=== PATIENT | female | born 1935 | race African-American/Black ===

== ENCOUNTER 2016-11-04 11:45 | Inpatient (IN) | payer MEDICARE, MEDICAID ==
[~2016-11-04] VITALS: Ht 162.6 cm; Wt 75.3 kg
[2016-11-04] MEDS ORDERED: FLUD0.1T PO (12:11)
[2016-11-04] MEDS ORDERED: METO-304 PO (12:11)
[2016-11-04] MEDS ORDERED: DOCU250C88 PO (12:11)
[2016-11-04] MEDS ORDERED: DIVA125C PO (12:11)
[2016-11-04] MEDS ORDERED: PHEN100C4 PO (12:11)
[2016-11-04] MEDS ORDERED: BISA10SU15 RC (12:11)
[2016-11-04] MEDS ORDERED: ASPI81TA31 PO (12:11)
[2016-11-04] MEDS ORDERED: AMLO10TA2 PO (12:11)
[2016-11-04] MEDS ORDERED: ERGO2000 PO (12:11)
[2016-11-04] MEDS ORDERED: OLAN2.5T3 PO (12:11)
[2016-11-04] MEDS ORDERED: VANCOMYCIN IV 1,000 MG in IV DEXTROSE 5% 250 ML IV ONE (12:15)
[2016-11-04] MEDS ORDERED: PIPERACILLIN SODIUM/TAZOBACTAM 3.375 G in IV DEXTROSE 5% 50 ML IV ONE (12:15)
[2016-11-04] MEDS ORDERED: IV NORMAL SALINE 1000 ML BAG IV ONE (12:15)
[2016-11-04 12:40] LABS: BASOPHILS % (AUTO) 0.4 % (0.0-2.0); EOSINOPHILS # (AUTO) 0.2 K/uL (0.0-0.7); EOSINOPHILS % (AUTO) 3.4 % (0.0-7.0); HEMATOCRIT 41.8 % (37-47); HEMOGLOBIN 13.3 G/DL (12.0-16.0); LYMPHOCYTES # (AUTO) 1.2 K/UL (0.8-4.8); LYMPHOCYTES % (AUTO) 20.8 % (20.5-51.5); MEAN CORPUSCULAR HEMOGLOBIN 28.4 UUG (27.0-31.0); MEAN CORPUSCULAR HGB CONC 32 g/dL (32.0-37.0); MEAN CORPUSCULAR VOLUME 89.2 FL (81.0-99.0); MONOCYTES # (AUTO) 0.7 K/UL (0.1-1.30); MONOCYTES % (AUTO) 12.3 % (0.0-11.0); NEUTROPHILS # (AUTO) 3.6 K/UL (1.8-8.9); NEUTROPHILS % (AUTO) 63.1 % (38.5-71.5); PLATELET COUNT (AUTO) 160 K/UL (150-450); RED BLOOD CELL COUNT(AUTO) 4.68 MIL/UL (4.2-5.4); WHITE BLOOD COUNT (AUTO) 5.7 K/UL (4.0-11.2)
[2016-11-04 12:42] LABS: CARBON DIOXIDE 30 mmol/L (21-32); CHLORIDE 108 mmol/L (98-107); CREATININE 1.3 mg/dL (0.6-1.3); GLUCOSE 123 mg/dL (74-106); POTASSIUM 4.5 mmol/L (3.5-5.1); UREA NITROGEN, BLOOD 20 mg/dL (7-18)
--- NOTE | 2016-11-04 12:44 | NUR ---
Pt became agitated and uncooperative when care provided, per assistant executive housekeeper/it security project manager pt is not staying still, MD aware. Meds ordered by
[2016-11-04] MEDS ORDERED: HALOPERIDOL LACTATE 5 MG/1 ML VIAL IV ONE (12:45)
[2016-11-04] MEDS ORDERED: diphenhydrAMINE 50 MG/1 ML VIAL IV ONE (12:45)
[2016-11-04] MEDS ORDERED: LORAZEPAM 2 MG/1 ML VIAL IV ONE (12:45)
--- NOTE | 2016-11-04 12:45 | NUR ---
Pt refused to change to hospital gown.
--- NOTE | 2016-11-04 12:46 | NUR ---
Dr Faye at the bedside for eval and exam.
[2016-11-04] MEDS ORDERED: VANCOMYCIN IV 200 ML ONE (12:50)
[2016-11-04] MEDS ORDERED: PIPERACILLIN/TAZOBACTAM/D5W 50 ML IV ONE (12:50)
[2016-11-04] MEDS ORDERED: diphenhydrAMINE 50 MG/1 ML VIAL ONE (12:55)
[2016-11-04] MEDS ORDERED: LORAZEPAM 2 MG/1 ML VIAL ONE (12:56)
[2016-11-04] MEDS ORDERED: HALOPERIDOL LACTATE 5 MG/1 ML VIAL ONE (12:56)
[2016-11-04 13:01] LABS: ALANINE AMINOTRANSFERASE 29 U/L (14-59); ALKALINE PHOSPHATASE 176 U/L (50-136); ASPARTATE AMINOTRANSFERASE 29 U/L (15-37); BILIRUBIN,DIRECT 0.1 mg/dL (0.0-0.2); BILIRUBIN,TOTAL 0.4 mg/dL (0.2-1.0); TOTAL PROTEIN, SERUM 7.5 g/dL (6.4-8.2)
--- NOTE | 2016-11-04 13:28 | NUR ---
Assissted sow farm technician to calm the pt for testing but pt becomes agitated again and unable to perform xray. Dr Yunier gomez.
--- NOTE | 2016-11-04 14:03 | NUR ---
Patient is resting comfortably in bed with eyes closed, NAD noted. Awaiting for PMD to call for admit.
--- NOTE | 2016-11-04 16:45 | NUR ---
Pt is not cooperative enough to have xray and ct done. ER aware.
--- NOTE | 2016-11-04 17:00 | NUR ---
Received from ER per samara, this 81 yo female, with chief complaint of right eye swollen, redness and discharge, with the diagnosis of cellulitis. Transferred to bed comfortably. Routine admission care rendered. Awake, confused, oriented to name, responsive to verbal and painful stimuli. Follows command, calm and cooperative, unable to open eyes. Dr. Pichardo informed of admission with orders.
[2016-11-04] MEDS ORDERED: ERGO500014 PO (17:28)
[2016-11-04 18:01] VITALS: BP 156/55
--- NOTE | 2016-11-04 18:34 | NUR ---
Incontinence care done. Repositioned in bed comfortably.
[2016-11-04 20:00] VITALS: BP 189/90
--- NOTE | 2016-11-04 20:15 | NUR ---
PATIENT'S BP 189/90, MD NOTIFIED. PT IS RESTING IN BED, RESPONSIVE, IN NO ACUTE DISTRESS. NO C/O OF HEADACHE, CHEST PAIN. WILL CONTINUE TO MONITOR.
--- NOTE | 2016-11-04 21:15 | NUR ---
SECOND CALL PLACED FOR MD REGARDING PATIENT'S ELEVATED BP 189/90. WAITING FOR CALL BACK.
--- NOTE | 2016-11-04 21:45 | NUR ---
DR. OBRIEN CALLED, VERBAL ORDERS TAKEN FOR CLONIDINE 0.1MG PRN, READ BACK AND CARRIED OUT. PATIENT IS IN NO DISTRESS, RESPONSIVE.
[2016-11-04] MEDS: PIPERACILLIN/TAZOBACTAM/D5W 3.375 G in PREMIXED 1 EACH IV SCH (21:54)
[2016-11-04] MEDS: CLONIDINE HCL 0.1 MG TABLET PO PRN (21:55)
[2016-11-04] MEDS: DIVALPROEX SPRINKLE 125 MG CAP.SPRINK PO SCH (22:03)
[2016-11-04] MEDS ORDERED: CLONIDINE HCL 0.1 MG TABLET ONE (22:03)
[2016-11-04] MEDS: PHENYTOIN SODIUM EXTENDED 100 MG CAPSULE.SA PO SCH (22:03)
[2016-11-05 04:41] VITALS: BP 184/82
[2016-11-05] MEDS: CLONIDINE HCL 0.1 MG TABLET PO PRN (04:45)
[2016-11-05] MEDS ORDERED: CLONIDINE HCL 0.1 MG TABLET ONE (04:54)
[2016-11-05] MEDS: PIPERACILLIN/TAZOBACTAM/D5W 3.375 G in PREMIXED 1 EACH IV SCH ×3 (05:00→21:00)
--- NOTE | 2016-11-05 06:34 | NUR ---
PATIENT SLEPT WELL, IN NO ACUTE DISTRESS. PATIENT IS RESISTANT TO CARE, FREQUENT REINFORCEMENT NEEDED. KEPT CLEAN/DRY, REPOSITIONED FOR COMFORT. SAFETY MEASURES IN PLACE, BED ALARM ON. WILL CONTINUE TO MONITOR.
--- NOTE | 2016-11-05 07:39 | NUR ---
CATAPRES WAS GIVEN BY NOC SHIFT
[2016-11-05] MEDS: DIVALPROEX SPRINKLE 125 MG CAP.SPRINK PO SCH ×2 (08:04→20:37)
[2016-11-05] MEDS: DOCUSATE SODIUM 250 MG CAPSULE PO SCH ×2 (08:05→17:18)
[2016-11-05] MEDS: ASPIRIN 81 MG TAB.CHEW PO SCH (08:05)
[2016-11-05] MEDS: PHENYTOIN SODIUM EXTENDED 100 MG CAPSULE.SA PO SCH ×2 (08:05→20:37)
[2016-11-05] MEDS: OLANZAPINE 2.5 MG TABLET PO SCH ×3 (08:05→17:19)
[2016-11-05] MEDS: AMLODIPINE 10 MG TABLET PO SCH (08:06)
[2016-11-05] MEDS: METOPROLOL SUCCINATE XL 50 MG TAB.SR.24H PO SCH (08:06)
[2016-11-05] MEDS ORDERED: BISACODYL 10 MG SUPP.RECT RC PRN (09:00)
[2016-11-05 11:23] VITALS: BP 134/59
[2016-11-05 15:52] VITALS: BP 126/60
--- NOTE | 2016-11-05 18:45 | NUR ---
PT REFUSED TO BE CATHETERIZED FOR URINE UA, UC.
[2016-11-05 19:00] VITALS: BP 162/78
--- NOTE | 2016-11-05 19:00 | NUR ---
PT IS LAYING IN BED COMFORTABLY. NO S/S OF RESPIRATORY DISTRESS NOTED. NO S/S OF PAIN NOTED. ALL SAFETY NEEDS ARE MET. IV INTACT/PATENT. PT'S SON IS BY THE BEDSIDE
--- NOTE | 2016-11-05 21:09 | NUR ---
CLINICAL PHARMACY NOTE:VANCOMYCIN DOSING Request for vancomycin dosing on 81 y/o female 5'4" 166lbs for cellulitis Temp 98F BUN 20 Scr 1.3 WBC 5.7 Received 1gm vancomycin in ER at 1300 Continue vancomycin 1gm ivpb [id number] estimate trough 14.7. Will continue to monitor
[2016-11-06 04:00] VITALS: BP 167/77
[2016-11-06] MEDS: PIPERACILLIN/TAZOBACTAM/D5W 3.375 G in PREMIXED 1 EACH IV SCH ×3 (05:09→21:16)
--- NOTE | 2016-11-06 06:00 | NUR ---
PT SLEPT WELL, IN NO ACUTE DISTRESS. PT HAS BEEN VERBALLY RESPONSIVE TO CARE AND COOPERATIVE. NO SIGNIFICANT CHANGE OF CONDITION THROUGHOUT THE SHIFT. SAFETY MEASURES IN PLACE, BED ALARM ON. WILL CONTINUE TO MONITOR.
--- NOTE | 2016-11-06 06:30 | NUR ---
URINE SPECIMEN OBTAINED AND SENT TO THE LAB. PATIENT WAS PLACED ON A CLEAN BED TORRES FOR CLEAN CATCH URINE.
[2016-11-06 06:50] LABS: BASOPHILS % (AUTO) 0.6 % (0.0-2.0); EOSINOPHILS # (AUTO) 0.5 K/uL (0.0-0.7); EOSINOPHILS % (AUTO) 9.2 % (0.0-7.0); HEMATOCRIT 38.2 % (37-47); HEMOGLOBIN 12.6 G/DL (12.0-16.0); LYMPHOCYTES # (AUTO) 1.6 K/UL (0.8-4.8); LYMPHOCYTES % (AUTO) 27.7 % (20.5-51.5); MEAN CORPUSCULAR HEMOGLOBIN 29.3 UUG (27.0-31.0); MEAN CORPUSCULAR HGB CONC 33 g/dL (32.0-37.0); MEAN CORPUSCULAR VOLUME 88.7 FL (81.0-99.0); MONOCYTES # (AUTO) 0.9 K/UL (0.1-1.30); MONOCYTES % (AUTO) 15.9 % (0.0-11.0); NEUTROPHILS # (AUTO) 2.8 K/UL (1.8-8.9); NEUTROPHILS % (AUTO) 46.6 % (38.5-71.5); PLATELET COUNT (AUTO) 153 K/UL (150-450); WHITE BLOOD COUNT (AUTO) 5.8 K/UL (4.0-11.2)
[2016-11-06 07:02] LABS: *BILIRUBIN,URIN NEGATIVE (NEGATIVE); *BLOOD, URINE Trace-lysed (NEGATIVE); *CLARITY,URINE CLEAR (CLEAR); *COLOR,URINE LIGHT YELLOW (YELLOW); *KETONES,URINE NEGATIVE (NEGATIVE); *PROTEIN,URINE TRACE (NEGATIVE); LEUKOCYTE ESTERASE ,URINE NEGATIVE (NEGATIVE); NITRITE, URINE NEGATIVE (NEGATIVE); PH,URINE 7.5 (5.0-8.0); UGLUCOSE NEGATIVE (NEGATIVE)
[2016-11-06 07:49] LABS: ALANINE AMINOTRANSFERASE 26 U/L (14-59); ALKALINE PHOSPHATASE 160 U/L (50-136); ASPARTATE AMINOTRANSFERASE 26 U/L (15-37); BILIRUBIN,TOTAL 0.4 mg/dL (0.2-1.0); CARBON DIOXIDE 26 mmol/L (21-32); CHLORIDE 108 mmol/L (98-107); CREATININE 1.4 mg/dL (0.6-1.3); GLUCOSE 119 mg/dL (74-106); PHOSPHOROUS 3.3 mg/dL (2.5-4.9); POTASSIUM 4.2 mmol/L (3.5-5.1); TOTAL PROTEIN, SERUM 7.2 g/dL (6.4-8.2); UREA NITROGEN, BLOOD 14 mg/dL (7-18)
[2016-11-06 08:13] LABS: BACTERIA,URINE FEW /HPF (NONE SEEN); SQUAMOUS EPITHELIAL CELL,UR FEW /HPF (NONE SEEN); WBC,URINE 0-3 /HPF (0-3)
[2016-11-06] MEDS: OLANZAPINE 2.5 MG TABLET PO SCH ×3 (08:47→17:34)
[2016-11-06] MEDS: DIVALPROEX SPRINKLE 125 MG CAP.SPRINK PO SCH ×2 (08:47→21:16)
[2016-11-06] MEDS: DOCUSATE SODIUM 250 MG CAPSULE PO SCH ×2 (08:47→17:33)
[2016-11-06] MEDS: FLUDROCORTISONE ACETATE 0.1 MG TABLET PO SCH (08:47)
[2016-11-06] MEDS: PHENYTOIN SODIUM EXTENDED 100 MG CAPSULE.SA PO SCH ×2 (08:47→21:16)
[2016-11-06] MEDS: ASPIRIN 81 MG TAB.CHEW PO SCH (08:47)
[2016-11-06] MEDS: METOPROLOL SUCCINATE XL 50 MG TAB.SR.24H PO SCH (08:48)
[2016-11-06] MEDS: AMLODIPINE 10 MG TABLET PO SCH (08:49)
[2016-11-06] MEDS: CLONIDINE HCL 0.1 MG TABLET PO PRN (08:51)
--- NOTE | 2016-11-06 10:00 | NUR ---
Patient given clonidine PRN for sBP of 185. Patient given all scheduled morning medications as well. Patient continues to have discharge coming from right eye and is very red.
[2016-11-06 10:21] LABS: EOSINOPHILS % (MANUAL) 9 % (0-8); LYMPHOCYTES % (MANUAL) 28 % (20-40); MONOCYTES % (MANUAL) 6 % (2-10); NEUTROPHILS % (MANUAL) 57 % (42-75)
[2016-11-06 11:48] VITALS: BP 110/57
--- NOTE | 2016-11-06 14:49 | NUR ---
Clinical pharmacy note-Vancomycin dosing per pharmacy Subjective: To continue Vancomycin dosing on this patient for cellulitis Objective: BUN 14 Scr 1.4 WBC 5.8 Temp 99.1 Assessment/Plan: Since renal function is stable, will continue same dose of Vancomycin 1 gram IV every 28hrs (second dose today at 1700)and draw trough by 4th dose(not ordered yet) for expected trough around 14.72. Will monitor renal function to adjust the dose if needed. Will follow daily.
[2016-11-06 15:56] VITALS: BP 118/61
[2016-11-06] MEDS ORDERED: VANCOMYCIN IV 1 G in PREMIXED 0 EACH IV SCH (17:00)
[2016-11-06 20:00] VITALS: BP 146/70
[2016-11-07] MEDS: CLONIDINE HCL 0.1 MG TABLET PO PRN (04:17)
[2016-11-07] MEDS: PIPERACILLIN/TAZOBACTAM/D5W 3.375 G in PREMIXED 1 EACH IV SCH (05:06)
[2016-11-07 05:53] VITALS: BP 180/74
--- NOTE | 2016-11-07 06:00 | NUR ---
PT RESISTANT TO CARE AT 0500. PT SLEPT WELL, IN NO ACUTE DISTRESS. KEPT CLEAN/DRY. SAFETY MEASURES IN PLACE, RAILS PADDED FOR SEIZURE PRECAUTION. BED ALARM ON. WILL CONTINUE TO MONITOR.
--- NOTE | 2016-11-07 07:30 | NUR ---
PT RECEIVED IN BED SLEEPING.UPON APPROACH PT IS CONFUSED.ORIENT THE PT TO ROOM AND SURROUNDINGS.BREAKFAST SERVED.
[2016-11-07] MEDS: DOCUSATE SODIUM 250 MG CAPSULE PO SCH ×2 (08:04→16:10)
[2016-11-07] MEDS: DIVALPROEX SPRINKLE 125 MG CAP.SPRINK PO SCH ×2 (08:04→21:33)
[2016-11-07] MEDS: PHENYTOIN SODIUM EXTENDED 100 MG CAPSULE.SA PO SCH ×2 (08:04→21:33)
[2016-11-07] MEDS: AMLODIPINE 10 MG TABLET PO SCH (08:04)
[2016-11-07] MEDS: OLANZAPINE 2.5 MG TABLET PO SCH ×3 (08:04→16:10)
[2016-11-07] MEDS: ASPIRIN 81 MG TAB.CHEW PO SCH (08:04)
[2016-11-07] MEDS: METOPROLOL SUCCINATE XL 50 MG TAB.SR.24H PO SCH (08:05)
--- NOTE | 2016-11-07 09:15 | NUR ---
Clinical pharmacy note-Vancomycin dosing per pharmacy Subjective: To continue Vancomycin dosing on this patient for cellulitis Objective: BUN 14 (11/06) Scr 1.4 (11/06) WBC 5.8 (11/06) Temp 98.7 Assessment/Plan: Will continue same dose of Vancomycin 1 gram IVPB every 28hrs for today. Second dose today at 2100. Plan to draw trough by 4th dose (not ordered yet). Will monitor renal function to adjust the dose if needed. Will follow daily.
--- NOTE | 2016-11-07 09:20 | NUR ---
PT SEEN BY DR VELARDE INFECTION CONTROL
[2016-11-07 11:00] VITALS: BP 119/55
--- NOTE | 2016-11-07 11:00 | NUR ---
PT WENT FOR CT SCAN BY BED IN STABLE CONDITION,
[2016-11-07] MEDS ORDERED: IOHEXOL 300MG/ML 100 ML INFUS..BTL ONE (11:21)
[2016-11-07] MEDS ORDERED: IV NORMAL SALINE 250 ML IV ONE (11:21)
--- NOTE | 2016-11-07 13:00 | NUR ---
PT RESTING IN HER BED .TOOK HER MEDS.
[2016-11-07] MEDS: CLINDAMYCIN HCL 300 MG CAPSULE PO SCH ×2 (13:22→21:33)
[2016-11-07 15:14] VITALS: BP 127/76
--- NOTE | 2016-11-07 18:00 | NUR ---
PT IS AWAKE IN HER BED ,BOLT MAKER FEEDING HER DINNER ,PT TOLERATED WELL NO NEW NEEDS NOTIFIED
[2016-11-07 20:00] VITALS: BP 122/93
--- NOTE | 2016-11-07 20:20 | NUR ---
Received patient from dayshift nurse in bed sleeping comfortably. No signs of pain or distress. No respiratory distress observed. Call light within reach bed in lowest position with bed alarm on for safety. Seizure precautions implemented. Will continue to monitor
--- NOTE | 2016-11-07 21:45 | NUR ---
IV on patients left hand DC'd due to infiltration. Patient also appears to have a skin allergy to the type of tape used to secure the IV site. Removed tape, cleaned site and dressed with gauze bandage. picture taken and placed in chart. Will endorse to morning nurse not to use that type of tape on the patient in the future. No pain reported by patient when asked. Will continue to monitor closely
[2016-11-08 04:21] VITALS: BP 143/51
[2016-11-08] MEDS: CLINDAMYCIN HCL 300 MG CAPSULE PO SCH ×3 (05:48→21:41)
--- NOTE | 2016-11-08 07:30 | NUR ---
PT RECEIVED IN BED SLEEPING .PT IS CONFUSED,PT HAVE BLISTER ON HER LEFT HAND ,V/S ARE STABLE ,BREAKFAST SERVED.
[2016-11-08] MEDS ORDERED: CLIN300C3 PO (07:55)
--- NOTE | 2016-11-08 08:00 | NUR ---
PT SEEN BY DR MICAH MD NOTIFIED FOR BLISTERS .DRESSING CHANGE PER MD ORDERS.
[2016-11-08] MEDS: OLANZAPINE 2.5 MG TABLET PO SCH ×3 (08:12→16:31)
[2016-11-08] MEDS: METOPROLOL SUCCINATE XL 50 MG TAB.SR.24H PO SCH (08:12)
[2016-11-08] MEDS: PHENYTOIN SODIUM EXTENDED 100 MG CAPSULE.SA PO SCH ×2 (08:12→20:48)
[2016-11-08] MEDS: AMLODIPINE 10 MG TABLET PO SCH (08:12)
[2016-11-08] MEDS: FLUDROCORTISONE ACETATE 0.1 MG TABLET PO SCH (08:12)
[2016-11-08] MEDS: DOCUSATE SODIUM 250 MG CAPSULE PO SCH ×2 (08:12→16:31)
[2016-11-08] MEDS: ASPIRIN 81 MG TAB.CHEW PO SCH (08:12)
[2016-11-08] MEDS: DIVALPROEX SPRINKLE 125 MG CAP.SPRINK PO SCH ×2 (08:12→20:48)
[2016-11-08 11:34] VITALS: BP 134/62
--- NOTE | 2016-11-08 14:04 | NUR ---
PT SEEN BY WOUND CARE NURSE.
--- NOTE | 2016-11-08 14:05 | NUR ---
WOUND CARE CONSULT: PT PRESENTS WITH BLISTERS TO DORSAL SURFACE OF LEFT HAND AND WRIST WITH SLIGHT REDNESS AND EDEMA. RECOMMEND FOLLOWUP BY INFECTIOUS DISEASE MD. RECOMMENDATIONS MADE FOR XEROFORM. DISCUSSED WITH NURSING STAFF. WILL SEE PRN. ROSE IN AGREEMENT WITH PLAN OF CARE. Addendum: 11/08/16 at 1407 by HASMUKH LUNDBERG RN Amended: Links added.
[2016-11-08 15:43] VITALS: BP 133/45
--- NOTE | 2016-11-08 16:54 | NUR ---
Discharge Plan: Spoke to the patient's son, Ethan [ ], who considered [facility] and [facility] for SNF placement. Referrred him to [email or web address] for resources. He spoke to the representatives of both facilities and tour. He chose for the patient to be discharged to [facility] [ ; [address] [place] [address]]. [facility] [ ] [facility] and she confirmed that they will admit the patient once stable. She will be going to Room#109.
[2016-11-08] MEDS ORDERED: ERGOCALCIFEROL 50,000 UNIT CAPSULE PO SCH (17:45)
--- NOTE | 2016-11-08 19:30 | NUR ---
RECEIVED PATIENT LAYING COMFORTABLY IN BED. HOB ELEVATED. PATIENT IS ALERT AND ORIENTED X'S 2. NOTED RIGHT EYE OPENS SMALLER THAN THE LEFT. SECONDARY TO HER DIAGNOSIS. LEFT HAND AND FOREARM WRAPPED IN KIRLEX. SAFETY INITIATED. CALL LIGHT WITHIN REACH. WILL CONTINUE TO MONITOR. CONTACT ISOLATION.
[2016-11-08 20:00] VITALS: BP 143/69
[2016-11-09 04:39] VITALS: BP 137/65
[2016-11-09] MEDS: CLINDAMYCIN HCL 300 MG CAPSULE PO SCH ×2 (05:02→13:03)
--- NOTE | 2016-11-09 06:30 | NUR ---
NO CHANGES T/O SHIFT. WOUND DRESSING CHANGE XEROFORM WRAPPED WITH KIRLEX. ALL MEDS GIVEN ORDERED. ALL NEEDS MET
--- NOTE | 2016-11-09 07:30 | NUR ---
Received patient from weight shifter nurse in bed sleeping comfortably. No signs of pain or distress. No respiratory distress observed. Call light within reach bed in lowest position with bed alarm on for safety. Seizure precautions implemented. Will continue to monitor
[2016-11-09] MEDS: DIVALPROEX SPRINKLE 125 MG CAP.SPRINK PO SCH (08:01)
[2016-11-09] MEDS: ASPIRIN 81 MG TAB.CHEW PO SCH (08:01)
[2016-11-09] MEDS: AMLODIPINE 10 MG TABLET PO SCH (08:01)
[2016-11-09] MEDS: PHENYTOIN SODIUM EXTENDED 100 MG CAPSULE.SA PO SCH (08:01)
[2016-11-09] MEDS: OLANZAPINE 2.5 MG TABLET PO SCH ×2 (08:01→12:46)
[2016-11-09] MEDS: FLUDROCORTISONE ACETATE 0.1 MG TABLET PO SCH (08:01)
[2016-11-09] MEDS: METOPROLOL SUCCINATE XL 50 MG TAB.SR.24H PO SCH (08:01)
[2016-11-09] MEDS: DOCUSATE SODIUM 250 MG CAPSULE PO SCH (08:01)
[2016-11-09 12:02] VITALS: BP 150/64
--- NOTE | 2016-11-09 13:04 | NUR ---
ALF CALLED FOR REPORT WAITING TO GIVE REPORT NO BODY ANSWER
--- NOTE | 2016-11-09 13:04 | NUR ---
PT SEEN BY DR GELLER ,D/C ORDERS RECEIVED ,FAMILY IS AT BED SIDE.
--- NOTE | 2016-11-09 15:08 | NUR ---
D/C ORDERS RECEIVED NOTED AND CARRIED OUT.D/C INSTRUCTIONS AND EDUCATIONS GIVEN TO THE LONGTERM RN.FAMILY NOTIFIED ,PT LEFT THE FACILITY VIA AMBULANCES IN STABLE CONDITION.
[2017-01-17] MEDS ORDERED: PHEN100C4 PO (08:02)
== END 2016-11-09 15:10 | DRG 602 ==
LOC: ER 11:45 → MED 16:47
PROVIDERS: ADMIT Internal Medicine; ATTEND Internal Medicine
DX: L03.213 Periorbital cellulitis (principal); G93.6 Cerebral edema; E27.40 Unspecified adrenocortical insufficiency; F03.90 Unspecified dementia, unspecified severity, without behavioral disturbance, psychotic disturbance, mood disturbance, and anxiety; E11.9 Type 2 diabetes mellitus without complications; G40.909 Epilepsy, unspecified, not intractable, without status epilepticus; Z66 Do not resuscitate; Z86.03 Personal history of neoplasm of uncertain behavior; Z79.899 Other long term (current) drug therapy; D32.0 Benign neoplasm of cerebral meninges; Z79.82 Long term (current) use of aspirin; I95.1 Orthostatic hypotension
CPT/HCPCS: 36415; 70030-TC; 83605; 83735; 84100; 85025; 85730; 87040; 87086; 93005; A4663; C1758; J1200; J1630; J2060; J2543; J3370; J7030; J7040; J7050; Q9967

== ENCOUNTER 2017-01-13 16:30 | Inpatient (IN) | payer MEDICARE, MEDICAID ==
[~2017-01-13] VITALS: Ht 160 cm; Wt 65.8 kg
[~2017-01-13 16:30] MED LIST: AMLO10TA2 PO; ASPI81TA31 PO; BISA10SU15 RC; CLIN300C3 PO; DIVA125C PO; DOCU250C88 PO; ERGO500014 PO; FLUD0.1T PO; METO-304 PO; OLAN2.5T3 PO; PHEN100C4 PO
[2017-01-13] MEDS ORDERED: NA P133E RC (16:55)
[2017-01-13] MEDS ORDERED: MAGN400O6 PO (16:55)
[2017-01-13] MEDS ORDERED: MULT1TAB73 PO (16:56)
[2017-01-13] MEDS ORDERED: ASCO-376 PO (16:56)
[2017-01-13] MEDS ORDERED: VALP250C3 PO (16:56)
[2017-01-13] MEDS ORDERED: PROSTAT (16:56)
[2017-01-13] MEDS ORDERED: ACET-2154 PO (16:56)
[2017-01-13] MEDS ORDERED: CLON0.1T PO (16:56)
[2017-01-13] MEDS ORDERED: CRAN425C6 PO (16:56)
[2017-01-13] MEDS ORDERED: PHEN100C12 PO (16:56)
[2017-01-13] MEDS ORDERED: IV NORMAL SALINE 1000 ML BAG IV ONE (17:15)
[2017-01-13 17:53] LABS: CARBON DIOXIDE 27 mmol/L (21-32); CHLORIDE 112 mmol/L (98-107); CREATININE 1.4 mg/dL (0.6-1.3); GLUCOSE 149 mg/dL (74-106); POTASSIUM 4.5 mmol/L (3.5-5.1); UREA NITROGEN, BLOOD 37 mg/dL (7-18)
[2017-01-13 18:06] LABS: ALANINE AMINOTRANSFERASE 31 U/L (14-59); ALKALINE PHOSPHATASE 170 U/L (50-136); ASPARTATE AMINOTRANSFERASE 43 U/L (15-37); BILIRUBIN,DIRECT < 0.1 mg/dL (0.0-0.2); BILIRUBIN,TOTAL 0.2 mg/dL (0.2-1.0); TOTAL PROTEIN, SERUM 7.7 g/dL (6.4-8.2)
--- NOTE | 2017-01-13 18:14 | NUR ---
SENT IN/OUT URINE SAMPLE TO LAB ORDERED
[2017-01-13 18:22] LABS: BASOPHILS % (AUTO) 0.3 % (0.0-2.0); EOSINOPHILS # (AUTO) 0.1 K/uL (0.0-0.7); EOSINOPHILS % (AUTO) 1.7 % (0.0-7.0); HEMATOCRIT 42.3 % (37-47); HEMOGLOBIN 13.3 G/DL (12.0-16.0); LYMPHOCYTES # (AUTO) 1.3 K/UL (0.8-4.8); LYMPHOCYTES % (AUTO) 21.2 % (20.5-51.5); MEAN CORPUSCULAR HEMOGLOBIN 27.7 UUG (27.0-31.0); MEAN CORPUSCULAR HGB CONC 31 g/dL (32.0-37.0); MEAN CORPUSCULAR VOLUME 88.5 FL (81.0-99.0); MONOCYTES # (AUTO) 0.7 K/UL (0.1-1.30); MONOCYTES % (AUTO) 11.7 % (0.0-11.0); NEUTROPHILS # (AUTO) 3.8 K/UL (1.8-8.9); NEUTROPHILS % (AUTO) 65.1 % (38.5-71.5); PLATELET COUNT (AUTO) 175 K/UL (150-450); RED BLOOD CELL COUNT(AUTO) 4.78 MIL/UL (4.2-5.4); WHITE BLOOD COUNT (AUTO) 5.9 K/UL (4.0-11.2)
[2017-01-13 18:25] LABS: *BLOOD, URINE Trace-intact (NEGATIVE); *CLARITY,URINE SLIGHTLY CLOUDY (CLEAR); *COLOR,URINE YELLOW (YELLOW); *KETONES,URINE TRACE (NEGATIVE); *UROBILINOGEN,URINE 0.2 E.U./dl (NORMAL); LEUKOCYTE ESTERASE ,URINE NEGATIVE (NEGATIVE); NITRITE, URINE NEGATIVE (NEGATIVE); PH,URINE 5.5 (5.0-8.0); UGLUCOSE NEGATIVE (NEGATIVE)
[2017-01-13 18:30] LABS: *BILIRUBIN,URIN 1+ (NEGATIVE); *PROTEIN,URINE 3+ (NEGATIVE)
[2017-01-13] MEDS ORDERED: IV DEXTROSE 5% 500 ML BAG IV ONE (18:30)
[2017-01-13 18:32] LABS: BACTERIA,URINE FEW /HPF (NONE SEEN); RBC,URINE 0-3 /HPF (0-3); SQUAMOUS EPITHELIAL CELL,UR FEW /HPF (NONE SEEN); WBC,URINE 0-3 /HPF (0-3)
[2017-01-13 20:00] VITALS: BP 183/73
--- NOTE | 2017-01-13 20:05 | NUR ---
Brought to Room 212 via bed by Issac Valdez LVN in guarded condition and he gave report to [facility]. floor RN.
[2017-01-13] MEDS ORDERED: IV NS 1000 ML 1,000 ML IV PRN (20:15)
[2017-01-13] MEDS ORDERED: ACETAMINOPHEN 325 MG TABLET PO PRN (20:15)
[2017-01-13] MEDS ORDERED: INSULIN REGULAR, HUMAN 300 UNIT/3 ML VIAL SQ PRN (20:15)
[2017-01-13] MEDS ORDERED: DEXTROSE 50% 50 ML DISP.SYRIN IV PRN (20:15)
--- NOTE | 2017-01-13 20:25 | NUR ---
ADMITTED PATIENT IN TELE UNIT UNDER THE CARE OF JIM HALL LIST DONE. Addendum: 01/13/17 at 2310 by RE WASHINGTON RN ADMITTED PATIENT IN TELE UNIT UNDER THE CARE OF AMMON HALL LIST DONE, CHARTING IN ERROR.
--- NOTE | 2017-01-13 20:27 | NUR ---
ADMITTED PATIENT IN TELE UNIT UNDER THE CARE OF AMMON RUIZ DONE.
[2017-01-13] MEDS: BLOOD SUGAR DIAGNOSTIC 1 EACH STRIP VI SCH ×2 (21:01→21:04)
--- NOTE | 2017-01-13 22:49 | NUR ---
CALLED [facility] TO OBTAIN VACCINE HISTORY, BUT STAFF UNABLE TO TELL BECAUSE HE DOESN'T HAVE ACCESS TO INFORMATION STATED THAT WE HAVE TO CALL IN THE MORNING, ENDORSE IN THE MORNING.
[2017-01-14] VITALS: BP 129/44
[2017-01-14 04:00] VITALS: BP 121/63
--- NOTE | 2017-01-14 05:25 | NUR ---
PATIENT SLEPT MOST OF THE NIGHT, NO SOB NO CHEST PAIN NOTED, RHYTHM SINUS RHYTHM, PATIENT HAS EPISODES OF RESISTIVE WITH CARE, CONTINUE TO ORIENT PATIENT WITH THE CARE, KEPT CLEAN AND DRY, NO COUGHING NO CHOKING NOTED, CONT TO MONITOR.
[2017-01-14] MEDS: BLOOD SUGAR DIAGNOSTIC 1 EACH STRIP VI SCH ×4 (06:06→21:35)
[2017-01-14 06:33] LABS: CARBON DIOXIDE 27 mmol/L (21-32); CHLORIDE 116 mmol/L (98-107); CREATININE 1.3 mg/dL (0.6-1.3); GLUCOSE 128 mg/dL (74-106); POTASSIUM 4.5 mmol/L (3.5-5.1); UREA NITROGEN, BLOOD 34 mg/dL (7-18)
[2017-01-14 07:04] LABS: BASOPHILS % (AUTO) 0.4 % (0.0-2.0); EOSINOPHILS # (AUTO) 0.3 K/uL (0.0-0.7); EOSINOPHILS % (AUTO) 6.8 % (0.0-7.0); HEMATOCRIT 38.3 % (31.2-41.9); HEMOGLOBIN 12.7 g/dL (10.9-14.3); LYMPHOCYTES # (AUTO) 1.6 K/uL (20.0-40.0); MEAN CORPUSCULAR HEMOGLOBIN 29.4 uug (24.7-32.8); MEAN CORPUSCULAR HGB CONC 33 g/dL (32.3-35.6); MEAN CORPUSCULAR VOLUME 88.9 fL (75.5-95.3); MONOCYTES # (AUTO) 0.6 K/uL (2.0-10.0); MONOCYTES % (AUTO) 13.5 % (0.0-11.0); NEUTROPHILS # (AUTO) 1.9 K/uL (1.8-8.9); NEUTROPHILS % (AUTO) 42.3 % (38.5-71.5); PLATELET COUNT (AUTO) 150 K/uL (179-408); RED BLOOD CELL COUNT(AUTO) 4.31 MIL/uL (3.63-4.92); WHITE BLOOD COUNT (AUTO) 4.5 K/uL (3.8-11.8)
--- NOTE | 2017-01-14 07:30 | NUR ---
RECEIVED PATIENT RESTING IN BED AWAKE ALERT NO S/S OF PAIN OR DISCOMFORTS AT THIS TIME.REMAIN ON IVF ORDERED WITH NO S/S OF INFILTERATION ON SITE.MAX ASSIST FOR ALL ADL MADE COMFORTABLE AND WILL CONTINUE TO OBSERVE.
[2017-01-14] MEDS ORDERED: MAGNESIUM HYDROXIDE 30 ML LIQUID UDC PO PRN (08:45)
[2017-01-14] MEDS ORDERED: BISACODYL 10 MG SUPP.RECT RC PRN (08:45)
[2017-01-14] MEDS ORDERED: FLEET ENEMA 133 ML BOTTLE RC PRN (08:45)
[2017-01-14] MEDS ORDERED: ACETAMINOPHEN 325 MG TABLET PO SCH (08:45)
[2017-01-14] MEDS ORDERED: CLONIDINE HCL 0.1 MG TABLET PO PRN (08:45)
[2017-01-14] MEDS: VALPROIC ACID 250 MG CAPSULE PO SCH ×2 (09:30→16:29)
[2017-01-14] MEDS: ASPIRIN 81 MG TAB.CHEW PO SCH (09:32)
[2017-01-14] MEDS: DOCUSATE SODIUM 250 MG CAPSULE PO SCH ×2 (09:32→16:30)
[2017-01-14] MEDS: ASCORBIC ACID 500 MG TABLET PO SCH (09:33)
[2017-01-14] MEDS: MULTIVITAMINS,THERAPEUTIC TABLET PO SCH (09:33)
[2017-01-14] MEDS: AMLODIPINE 10 MG TABLET PO SCH (09:33)
[2017-01-14] MEDS: METOPROLOL SUCCINATE XL 50 MG TAB.SR.24H PO SCH (09:34)
[2017-01-14] MEDS: PHENYTOIN SODIUM EXTENDED 100 MG CAPSULE.SA PO SCH ×3 (09:36→21:22)
[2017-01-14] MEDS: FLUDROCORTISONE ACETATE 0.1 MG TABLET PO SCH (09:36)
[2017-01-14] MEDS: IV 1/2NS 1000 ML 1,000 ML IV PRN (11:14)
[2017-01-14 15:35] VITALS: BP 147/58
[2017-01-14] MEDS: PROTEIN SUPPLEMENT (PROSTAT) 30 ML LIQUID PO SCH (16:10)
--- NOTE | 2017-01-14 18:00 | NUR ---
MORE AWAKE FED SELF DINNER AT THIS TIME WITH IVF IN PROGRESS WITH NO INFILTERATIONS AT THIS TIME AND WILL CONTINUE TO OBSERVE.
[2017-01-14 20:00] VITALS: BP 166/70
[2017-01-14 23:53] VITALS: BP 134/59
[2017-01-15] MEDS: IV 1/2NS 1000 ML 1,000 ML IV PRN ×2 (00:59→12:39)
[2017-01-15 04:00] VITALS: BP 163/63
--- NOTE | 2017-01-15 04:15 | NUR ---
PT REFUSING TO HAVE VITALS TAKEN. EMISSIONS TESTING TECHNICIAN ABLE TO TAKE BP READING, REFUSED TO HAVE PULSE OX AND TEMP TAKEN.
[2017-01-15] MEDS: PHENYTOIN SODIUM EXTENDED 100 MG CAPSULE.SA PO SCH ×4 (05:43→22:00)
--- NOTE | 2017-01-15 06:30 | NUR ---
PT SLEPT INTERMITTENTLY, IN NO ACUTE DISTRESS. ACCUCHECKS ORDERED, NO S/S HYPO/HYPERGLYCEMIA NOTED. IVF RUNNING, NO INFILTRATION NOTED. PT KEPT CLEAN/DRY, REPOSITIONED FOR COMFORT. BED ALARM ON. WILL CONTINUE TO MONITOR. Addendum: 01/15/17 at 0650 by MELBA DEE RN ADD: PT IS ON TELE SINUS RHYTHM
[2017-01-15] MEDS: BLOOD SUGAR DIAGNOSTIC 1 EACH STRIP VI SCH ×4 (06:40→21:00)
[2017-01-15 06:53] LABS: THYROID STIMULATING HORMONE 0.913 mIU/mL (0.358-3.740)
--- NOTE | 2017-01-15 07:30 | NUR ---
Received report from weight shifter nurse. Patient in bed asleep, no evidence of distress noted at this time. Bed in low position, side rails up x2.
[2017-01-15] MEDS: PROTEIN SUPPLEMENT (PROSTAT) 30 ML LIQUID PO SCH ×2 (08:00→17:17)
[2017-01-15 08:14] LABS: BASOPHILS % (AUTO) 0.8 % (0.0-2.0); EOSINOPHILS # (AUTO) 0.4 K/uL (0.0-0.7); EOSINOPHILS % (AUTO) 6.7 % (0.0-7.0); HEMATOCRIT 38.6 % (37-47); HEMOGLOBIN 12.6 G/DL (12.0-16.0); LYMPHOCYTES # (AUTO) 2.3 K/UL (0.8-4.8); LYMPHOCYTES % (AUTO) 37.9 % (20.5-51.5); MEAN CORPUSCULAR HEMOGLOBIN 28.8 UUG (27.0-31.0); MEAN CORPUSCULAR HGB CONC 33 g/dL (32.0-37.0); MONOCYTES # (AUTO) 0.6 K/UL (0.1-1.30); MONOCYTES % (AUTO) 10.5 % (0.0-11.0); NEUTROPHILS # (AUTO) 2.8 K/UL (1.8-8.9); NEUTROPHILS % (AUTO) 44.1 % (38.5-71.5); PLATELET COUNT (AUTO) 180 K/UL (150-450); RED BLOOD CELL COUNT(AUTO) 4.38 MIL/UL (4.2-5.4); WHITE BLOOD COUNT (AUTO) 6.1 K/UL (4.0-11.2)
[2017-01-15 08:26] LABS: ALANINE AMINOTRANSFERASE 26 U/L (14-59); ALKALINE PHOSPHATASE 145 U/L (50-136); ASPARTATE AMINOTRANSFERASE 33 U/L (15-37); BILIRUBIN,TOTAL 0.3 mg/dL (0.2-1.0); CARBON DIOXIDE 24 mmol/L (21-32); CHLORIDE 109 mmol/L (98-107); CREATININE 1.4 mg/dL (0.6-1.3); GLUCOSE 119 mg/dL (74-106); MAGNESIUM 1.6 mg/dL (1.8-2.4); PHOSPHOROUS 3.2 mg/dL (2.5-4.9); POTASSIUM 4.5 mmol/L (3.5-5.1); TOTAL PROTEIN, SERUM 6.7 g/dL (6.4-8.2); UREA NITROGEN, BLOOD 26 mg/dL (7-18)
--- NOTE | 2017-01-15 09:00 | NUR ---
Patient is giving a lot of resistance in taking medications. Paranoid ideations that something else is in the medications. Patient ultimately took medications with chocolate pudding.
[2017-01-15] MEDS: DOCUSATE SODIUM 250 MG CAPSULE PO SCH ×3 (09:02→17:17)
[2017-01-15] MEDS: ASCORBIC ACID 500 MG TABLET PO SCH (09:02)
[2017-01-15] MEDS: ASPIRIN 81 MG TAB.CHEW PO SCH (09:02)
[2017-01-15] MEDS: VALPROIC ACID 250 MG CAPSULE PO SCH ×3 (09:02→17:16)
[2017-01-15] MEDS: MULTIVITAMINS,THERAPEUTIC TABLET PO SCH (09:02)
[2017-01-15] MEDS: FLUDROCORTISONE ACETATE 0.1 MG TABLET PO SCH (09:05)
[2017-01-15] MEDS: METOPROLOL SUCCINATE XL 50 MG TAB.SR.24H PO SCH (09:11)
[2017-01-15] MEDS: AMLODIPINE 10 MG TABLET PO SCH (09:11)
[2017-01-15 11:53] VITALS: BP 142/61
[2017-01-15] MEDS ORDERED: MAGNESIUM OXIDE 400 MG TABLET PO ONE (12:00)
[2017-01-15] MEDS: MAGNESIUM SULFATE/D5W 100 ML IV SCH ×2 (12:32→13:26)
[2017-01-15 15:34] VITALS: BP 127/51
--- NOTE | 2017-01-15 17:25 | NUR ---
Patient has had two episodes of emesis. Administered zofran as ordered by Dr. wagner.
[2017-01-15] MEDS ORDERED: ONDANSETRON 4 MG/2 ML VIAL IV PRN (18:00)
--- NOTE | 2017-01-15 19:03 | NUR ---
Patient appears to be doing better and has requested a tuna sandwich. Patient consumed the entire sandwich and agreed to have an EEG.
[2017-01-15 20:45] VITALS: BP 129/108
--- NOTE | 2017-01-15 21:20 | NUR ---
PT REFUSED TO TAKE SCHEDULED MED AND ACCUCHECK, PT WAS RESISTING AND COMBATIVE. RN CONVINCED PT TO TAKE MEDS, EXPLAINED RISKS/BENEFITS, MULTIPLE ATTEMPTS BUT WAS UNSUCCESSFUL. PT IS ALERT, IN NO ACUTE DISTRESS. WILL CONTINUE TO MONITOR.
[2017-01-16] MEDS: IV 1/2NS 1000 ML 1,000 ML IV PRN ×2 (03:09→20:45)
--- NOTE | 2017-01-16 05:00 | NUR ---
WITHELD PHENYTOIN/DILANTIN SCHEDULED MED DUE TO DRUG LEVEL OUT OF RANGE 25.7 HIGH. Addendum: 01/16/17 at 0748 by MELBA DEE RN TALKED TO PHARMACY, [facility] TO [facility] .
[2017-01-16] MEDS: PHENYTOIN SODIUM EXTENDED 100 MG CAPSULE.SA PO SCH (05:01)
[2017-01-16 05:15] VITALS: BP 118/50
--- NOTE | 2017-01-16 06:30 | NUR ---
PT SLEPT WELL, IN NO ACUTE DISTRESS. IVF RUNNING, NO INFILTRATION NOTED. PT KEPT CLEAN/DRY, REPOSITIONED FOR COMFORT. SAFETY MEASURES IN PLACE, BED ALARM ON. WILL CONTINUE TO MONITOR.
[2017-01-16] MEDS: BLOOD SUGAR DIAGNOSTIC 1 EACH STRIP VI SCH ×4 (06:38→20:46)
[2017-01-16 06:47] LABS: BASOPHILS # (AUTO) 0.1 K/uL (0.0-8.0); BASOPHILS % (AUTO) 0.8 % (0.0-2.0); EOSINOPHILS # (AUTO) 0.4 K/uL (0.0-0.7); EOSINOPHILS % (AUTO) 5.4 % (0.0-7.0); HEMATOCRIT 41.4 % (37-47); HEMOGLOBIN 13.5 G/DL (12.0-16.0); LYMPHOCYTES # (AUTO) 2.7 K/UL (0.8-4.8); LYMPHOCYTES % (AUTO) 35.1 % (20.5-51.5); MEAN CORPUSCULAR HEMOGLOBIN 28.8 UUG (27.0-31.0); MEAN CORPUSCULAR HGB CONC 33 g/dL (32.0-37.0); MEAN CORPUSCULAR VOLUME 88.3 FL (81.0-99.0); MONOCYTES # (AUTO) 0.9 K/UL (0.1-1.30); MONOCYTES % (AUTO) 10.9 % (0.0-11.0); NEUTROPHILS # (AUTO) 3.7 K/UL (1.8-8.9); NEUTROPHILS % (AUTO) 47.8 % (38.5-71.5); PLATELET COUNT (AUTO) 122 K/UL (150-450); RED BLOOD CELL COUNT(AUTO) 4.69 MIL/UL (4.2-5.4); WHITE BLOOD COUNT (AUTO) 7.8 K/UL (4.0-11.2)
[2017-01-16 06:48] LABS: ALANINE AMINOTRANSFERASE 23 U/L (14-59); ALKALINE PHOSPHATASE 151 U/L (50-136); ASPARTATE AMINOTRANSFERASE 23 U/L (15-37); BILIRUBIN,TOTAL 0.2 mg/dL (0.2-1.0); CARBON DIOXIDE 26 mmol/L (21-32); CHLORIDE 111 mmol/L (98-107); CREATININE 1.5 mg/dL (0.6-1.3); GLUCOSE 102 mg/dL (74-106); MAGNESIUM 2.3 mg/dL (1.8-2.4); PHOSPHOROUS 3.9 mg/dL (2.5-4.9); POTASSIUM 5.2 mmol/L (3.5-5.1); TOTAL PROTEIN, SERUM 6.7 g/dL (6.4-8.2); UREA NITROGEN, BLOOD 20 mg/dL (7-18)
--- NOTE | 2017-01-16 07:25 | NUR ---
RECEIVED REPORT FROM WOOLING MACHINE OPERATOR NURSE, PATIENT IN BED ASLEEP, NO EVIDENCE OF DISTRESS NOTED. BED IN LOW POSITION, SIDE RAILS UP X2.
[2017-01-16] MEDS: ASPIRIN 81 MG TAB.CHEW PO SCH (08:22)
[2017-01-16] MEDS: AMLODIPINE 10 MG TABLET PO SCH (08:22)
[2017-01-16] MEDS: METOPROLOL SUCCINATE XL 50 MG TAB.SR.24H PO SCH (08:22)
[2017-01-16] MEDS: DOCUSATE SODIUM 250 MG CAPSULE PO SCH ×2 (08:23→17:57)
[2017-01-16] MEDS: ASCORBIC ACID 500 MG TABLET PO SCH (08:23)
[2017-01-16] MEDS: MULTIVITAMINS,THERAPEUTIC TABLET PO SCH (08:23)
[2017-01-16] MEDS: VALPROIC ACID 250 MG CAPSULE PO SCH (08:23)
[2017-01-16] MEDS: PROTEIN SUPPLEMENT (PROSTAT) 30 ML LIQUID PO SCH ×2 (08:33→17:57)
[2017-01-16] MEDS ORDERED: MIRALAX 17 GM POWD.PACK PO PRN (11:00)
[2017-01-16 11:23] VITALS: BP 148/70
[2017-01-16 15:05] VITALS: BP 138/76
[2017-01-16] MEDS: DIVALPROEX SPRINKLE 125 MG CAP.SPRINK PO SCH (17:57)
--- NOTE | 2017-01-16 19:04 | NUR ---
PATIENT HAS BEEN COOPERATIVE, AND TALKATIVE MOST OF THE DAY IF SHE WASN'T SLEEPING. GOT OUT OF BED WITH PHYSICAL THERAPY, BUT WAS TOO WEEK TO AMBULATE. PATIENT HAS BEEN EATING THE MAJORITY OF HER MEALS TODAY AND DOES NOT REPORT ANY PAIN.
--- NOTE | 2017-01-16 19:30 | NUR ---
received patient laying comfortably in bed. no acute distress noted. patient is asleep at this time. safety initiated. call light within reach. will continue to monitor.
[2017-01-16 20:00] VITALS: BP 141/59
[2017-01-17 05:27] VITALS: BP 153/71
--- NOTE | 2017-01-17 05:59 | NUR ---
PATIENT SLEPT INTERMITTENTLY T/O THE NIGHT. NO ACUTE DISTRESS NOTED. PATIENT REMAINS A&O TO SELF ONLY. IVF INFUSING IN LEFT AC # 20. NO C/O PAIN. VITAL SIGNS STABLE. BMX1. DVT PUMPS IN PLACE. TURN AND REPOSITION Q2H. SAFETY AND COMFORT MEASURES MAINTAINED T/O SHIFT. ALL NEEDS MET. ALL MEDS GIVEN ORDERED.
[2017-01-17] MEDS: BLOOD SUGAR DIAGNOSTIC 1 EACH STRIP VI SCH ×2 (06:52→12:29)
--- NOTE | 2017-01-17 07:10 | NUR ---
Received report from marine radio installer and servicer nurse, patient in bed awake, no evidence of distress noted. Bed in low position, side rails up x2, bed alarm on.
[2017-01-17] MEDS: PROTEIN SUPPLEMENT (PROSTAT) 30 ML LIQUID PO SCH (08:00)
[2017-01-17] MEDS ORDERED: PHEN100C4 PO (08:02)
[2017-01-17] MEDS: METOPROLOL SUCCINATE XL 50 MG TAB.SR.24H PO SCH (08:56)
[2017-01-17] MEDS: ASPIRIN 81 MG TAB.CHEW PO SCH (08:56)
[2017-01-17] MEDS: MULTIVITAMINS,THERAPEUTIC TABLET PO SCH (08:56)
[2017-01-17] MEDS: ASCORBIC ACID 500 MG TABLET PO SCH (08:56)
[2017-01-17] MEDS: DOCUSATE SODIUM 250 MG CAPSULE PO SCH (08:56)
[2017-01-17] MEDS: DIVALPROEX SPRINKLE 125 MG CAP.SPRINK PO SCH (08:56)
[2017-01-17] MEDS: AMLODIPINE 10 MG TABLET PO SCH (08:57)
[2017-01-17] MEDS: FLUDROCORTISONE ACETATE 0.1 MG TABLET PO SCH (08:59)
[2017-01-17 09:33] LABS: BASOPHILS % (AUTO) 0.7 % (0.0-2.0); EOSINOPHILS # (AUTO) 0.4 K/uL (0.0-0.7); EOSINOPHILS % (AUTO) 6.3 % (0.0-7.0); HEMATOCRIT 40.8 % (37-47); HEMOGLOBIN 13.5 G/DL (12.0-16.0); LYMPHOCYTES # (AUTO) 1.5 K/UL (0.8-4.8); MEAN CORPUSCULAR HEMOGLOBIN 29.3 UUG (27.0-31.0); MEAN CORPUSCULAR HGB CONC 33 g/dL (32.0-37.0); MEAN CORPUSCULAR VOLUME 88.3 FL (81.0-99.0); MONOCYTES # (AUTO) 0.6 K/UL (0.1-1.30); MONOCYTES % (AUTO) 9.7 % (0.0-11.0); NEUTROPHILS # (AUTO) 3.3 K/UL (1.8-8.9); NEUTROPHILS % (AUTO) 58.3 % (38.5-71.5); PLATELET COUNT (AUTO) 166 K/UL (150-450); RED BLOOD CELL COUNT(AUTO) 4.61 MIL/UL (4.2-5.4); WHITE BLOOD COUNT (AUTO) 5.8 K/UL (4.0-11.2)
[2017-01-17 10:00] LABS: ALANINE AMINOTRANSFERASE 28 U/L (14-59); ALKALINE PHOSPHATASE 151 U/L (50-136); ASPARTATE AMINOTRANSFERASE 24 U/L (15-37); BILIRUBIN,TOTAL 0.2 mg/dL (0.2-1.0); CARBON DIOXIDE 29 mmol/L (21-32); CHLORIDE 110 mmol/L (98-107); CREATININE 1.3 mg/dL (0.6-1.3); GLUCOSE 163 mg/dL (74-106); PHOSPHOROUS 3.2 mg/dL (2.5-4.9); POTASSIUM 3.9 mmol/L (3.5-5.1); TOTAL PROTEIN, SERUM 7.2 g/dL (6.4-8.2); UREA NITROGEN, BLOOD 17 mg/dL (7-18)
[2017-01-17 11:02] VITALS: BP 150/74
[2017-01-17 15:20] VITALS: BP 136/54
--- NOTE | 2017-01-17 16:00 | NUR ---
CALLED REPORT TO JASPREET AT [facility]. PATIENT WAS PREPARED FOR TRANSFER, IV REMOVED, DISCHARGE EDUCATION PROVIDED, BUT PATIENT HAD POOR CONCENTRATION. ALL BELONGINGS ACCOUNTED FOR AND PREPARED FOR TRANSPORT.
--- NOTE | 2017-01-17 16:40 | NUR ---
PATIENT WAS PICKED UP BY TRANSPORTATION PROVIDER.
== END 2017-01-17 12:25 | DRG 91 ==
LOC: ER 16:31 → TELE 19:49 → MED 01-15 14:52
PROVIDERS: ADMIT Internal Medicine Nephrology; ATTEND Internal Medicine
DX: G92 Toxic encephalopathy (principal); N17.0 Acute kidney failure with tubular necrosis; E87.0 Hyperosmolality and hypernatremia; Y92.099 Unspecified place in other non-institutional residence as the place of occurrence of the external cause; T50.905A Adverse effect of unspecified drugs, medicaments and biological substances, initial encounter; E86.0 Dehydration; G93.89 Other specified disorders of brain; G40.909 Epilepsy, unspecified, not intractable, without status epilepticus; F39 Unspecified mood [affective] disorder; Z79.899 Other long term (current) drug therapy; E11.9 Type 2 diabetes mellitus without complications; Z79.82 Long term (current) use of aspirin; F03.90 Unspecified dementia, unspecified severity, without behavioral disturbance, psychotic disturbance, mood disturbance, and anxiety; I10 Essential (primary) hypertension; R26.9 Unspecified abnormalities of gait and mobility
CPT/HCPCS: 36415; 70030-TC; 70450; 71010; 83605; 83735; 84100; 84300; 84443; 85025; 85730; 87040; 87086; 87400; 93005; 95819; 97110; 97530; A4663; C1758; J1815; J2405; J3475; J3490; J7030; J7040; J7060

== ENCOUNTER 2018-05-01 14:48 | Inpatient (IN) | payer MEDICARE, MEDICAID ==
[~2018-05-01] VITALS: Ht 157.5 cm; Wt 78.2 kg
[~2018-05-01 14:48] MED LIST changes: +ACET-2154 PO; -AMLO10TA2 PO; +AMLO10TA7 PO; +ASCO-376 PO; -CLIN300C3 PO; +CLON0.1T PO; +CRAN425C6 PO; -DIVA125C PO; -ERGO500014 PO; +MAGN400O6 PO; -METO-304 PO; +METO-357 PO; +MULT1TAB73 PO; +NA P133E RC; +PHEN100C12 PO; +PROSTAT
[2018-05-01] MEDS ORDERED: ACETAMINOPHEN 650 MG SUPP.RECT RC ONE ×2 (15:00→15:14)
[2018-05-01] MEDS ORDERED: IV NORMAL SALINE 1000 ML BAG IV ONE ×2 (15:00→16:00)
--- NOTE | 2018-05-01 15:00 | NUR ---
PT A/OX1, BIB PRIVATE AMBULANCE FROM [facility]. PER BAGGAGE AGENT', PT HAS BEEN FEBRILE AND INCREASINGLY LETHARGIC IN THE LAST FEW DAYS. BAGGAGE AGENT ALSO REPORT THAT PT HAS VOMITED APPROXIMATELY 5 TIMES SINCE THIS AM. PT IS UNABLE TO PROVIDE INFORMATION AND IS A POOR HISTORIAN. VS WNL, PT IS FEBRILE 103.1. ER AWARE - CODE SEPSIS ACTIVATED.
[2018-05-01 15:17] LABS: BASOPHILS % (AUTO) 0.3 % (0.0-2.0); HEMATOCRIT 36.2 % (31.2-41.9); HEMOGLOBIN 11.9 g/dL (10.9-14.3); LYMPHOCYTES # (AUTO) 0.2 K/uL (20.0-40.0); LYMPHOCYTES % (AUTO) 1.3 % (20.5-51.5); MEAN CORPUSCULAR HEMOGLOBIN 28.1 uug (24.7-32.8); MEAN CORPUSCULAR HGB CONC 33 g/dL (32.3-35.6); MEAN CORPUSCULAR VOLUME 85.3 fL (75.5-95.3); MONOCYTES # (AUTO) 0.3 K/uL (2.0-10.0); MONOCYTES % (AUTO) 1.6 % (0.0-11.0); NEUTROPHILS # (AUTO) 17.1 K/uL (1.8-8.9); NEUTROPHILS % (AUTO) 96.8 % (38.5-71.5); PLATELET COUNT (AUTO) 166 K/uL (179-408); RED BLOOD CELL COUNT(AUTO) 4.24 MIL/uL (3.63-4.92); WHITE BLOOD COUNT (AUTO) 17.7 K/uL (3.8-11.8)
[2018-05-01 15:22] LABS: CARBON DIOXIDE 23 mmol/L (21-32); CHLORIDE 106 mmol/L (98-107); CREATININE 2.8 mg/dL (0.6-1.3); GLUCOSE 196 mg/dL (74-106); POTASSIUM 3.8 mmol/L (3.5-5.1); UREA NITROGEN, BLOOD 37 mg/dL (7-18)
[2018-05-01 15:27] LABS: ALANINE AMINOTRANSFERASE 35 U/L (14-59); ALKALINE PHOSPHATASE 207 U/L (50-136); ASPARTATE AMINOTRANSFERASE 20 U/L (15-37); BILIRUBIN,DIRECT 0.6 mg/dL (0.0-0.2); BILIRUBIN,TOTAL 0.9 mg/dL (0.2-1.0); LIPASE 72 U/L (73-393); TOTAL PROTEIN, SERUM 7.8 g/dL (6.4-8.2)
--- NOTE | 2018-05-01 15:40 | NUR ---
ER SPOKE W/ DR. GELLER RE PT'S ADMISSION.
[2018-05-01] MEDS ORDERED: VANCOMYCIN IV 1,000 MG in IV DEXTROSE 5% 250 ML IV ONE (15:45)
[2018-05-01] MEDS ORDERED: PIPERACILLIN SODIUM/TAZOBACTAM 3.375 G in IV DEXTROSE 5% 50 ML IV ONE (15:45)
[2018-05-01 15:50] LABS: *BILIRUBIN,URIN NEGATIVE (NEGATIVE); *BLOOD, URINE 2+ (NEGATIVE); *KETONES,URINE NEGATIVE (NEGATIVE); *UROBILINOGEN,URINE 0.2 E.U./dl (NORMAL); LEUKOCYTE ESTERASE ,URINE 3+ (NEGATIVE); NITRITE, URINE NEGATIVE (NEGATIVE); PH,URINE 5.5 (5.0-8.0); UGLUCOSE NEGATIVE (NEGATIVE)
[2018-05-01] MEDS ORDERED: PIPERACILLIN/TAZOBACTAM/D5W 50 ML IV ONE (15:50)
[2018-05-01] MEDS ORDERED: VANCOMYCIN IV 200 ML ONE (15:50)
[2018-05-01 16:03] LABS: *CLARITY,URINE CLOUDY (CLEAR); *COLOR,URINE YELLOW (YELLOW)
[2018-05-01 16:05] LABS: BACTERIA,URINE MANY /HPF (NONE SEEN); RBC,URINE 20-50 /HPF (0-3); WBC,URINE TNTC /HPF (0-3)
[2018-05-01 16:06] LABS: SQUAMOUS EPITHELIAL CELL,UR FEW /HPF (NONE SEEN)
[2018-05-01] MEDS ORDERED: AMLO10TA7 PO (16:12)
[2018-05-01] MEDS ORDERED: NITR0.4T48 SL (16:12)
[2018-05-01] MEDS ORDERED: MORPHINE 100MG/5ML SQ (16:12)
[2018-05-01] MEDS ORDERED: FURO-151 PO (16:12)
[2018-05-01] MEDS ORDERED: ATROPINE 1% SL (16:12)
[2018-05-01] MEDS ORDERED: LOSA50TA39 PO (16:12)
[2018-05-01] MEDS ORDERED: PROC25SU29 RC (16:12)
[2018-05-01] MEDS ORDERED: POTA10CA43 PO (16:12)
[2018-05-01] MEDS ORDERED: HYDR-3326 PO (16:12)
[2018-05-01] MEDS ORDERED: NIFE30TA91 PO (16:12)
[2018-05-01] MEDS ORDERED: BISA10SU61 RC (16:12)
[2018-05-01] MEDS ORDERED: LORA0.5T SL (16:12)
[2018-05-01] MEDS ORDERED: TYLENOL PR (16:12)
[2018-05-01] MEDS ORDERED: CIPROFLOXIN EACHEYE (16:12)
[2018-05-01] MEDS ORDERED: FAMO40TA7 PO (16:12)
--- NOTE | 2018-05-01 16:22 | NUR ---
ADMITTING REPORT GIVEN TO ILYA ISIDRO.
--- NOTE | 2018-05-01 16:43 | NUR ---
PER NURSING SECURITIES AND REAL ESTATE DIRECTORAFUA, PT WILL BE ADMITTED TO CCU4 UNDER BRITNI STATUS.
--- NOTE | 2018-05-01 16:52 | NUR ---
ADMITTING REPORT GIVEN TO ILYA SMITH.
[2018-05-01 17:00] VITALS: BP 132/69
--- NOTE | 2018-05-01 17:00 | NUR ---
ADMIT AN 82 YO FEMALE FROM ER VIA GURSHAN. BRITNI STATUS. AWAKE, BUT VERY CONFUSED. FOLLOWS COMMANDS BUT VERY FORGEFUL. ORIENTED TO HER NAME ONLY. HR IS ST IN THE 120'S. TEMP IS 102.7 RECTALLY. PT PLACED ON A COOLING BLANKET. IVF OF NS 2L IN PROGRESS FOR BOLUS OF BOTH RIGHT AND LEFT AC IV ACCESS.
--- NOTE | 2018-05-01 17:02 | NUR ---
Pt. admitted to CCU4, under care of Dr. GELLER. Belongs List completed
[2018-05-01 18:00] VITALS: BP 124/59
--- NOTE | 2018-05-01 18:05 | NUR ---
NOTIFIED DR GELLER FOR ADMITTING ORDERS.
[2018-05-01] MEDS ORDERED: DOSING BY PHARMACY-MD TO SPECIFY MED/ROUTE XX PRN (18:30)
[2018-05-01] MEDS ORDERED: ACETAMINOPHEN 650 MG SUPP.RECT RC PRN (18:30)
--- NOTE | 2018-05-01 19:00 | NUR ---
2L OF IV NS BOLUSES IS DONE. 2 MORE LITERS OF BOLUSES FROM THE ER TO FOLLOW PER ER ORDERS.
[2018-05-01] MEDS ORDERED: ACETAMINOPHEN 325 MG TABLET PO PRN (19:15)
[2018-05-01] MEDS ORDERED: NITROGLYCERIN 0.4 MG/TAB BOTTLE SL SCH (19:15)
[2018-05-01] MEDS ORDERED: PROCHLORPERAZINE MALEATE 25 MG SUPP.RECT RC PRN (19:15)
[2018-05-01] MEDS ORDERED: ATROPINE SULFATE 1% OPHT DROP 2 ML SL PRN ×2 (19:15→20:15)
[2018-05-01] MEDS ORDERED: MORPHINE SULFATE 20 MG/1 ML ORAL LIQ. PO PRN (19:15)
[2018-05-01] MEDS ORDERED: MAGNESIUM HYDROXIDE 30 ML LIQUID UDC PO PRN (19:15)
[2018-05-01] MEDS ORDERED: BISACODYL 10 MG SUPP.RECT RC PRN (19:15)
[2018-05-01] MEDS ORDERED: CLONIDINE HCL 0.1 MG TABLET PO PRN (19:15)
--- NOTE | 2018-05-01 19:30 | NUR ---
Con't infusing NSS IV bolus from ER.
[2018-05-01] MEDS ORDERED: NITROGLYCERIN 0.4 MG/TAB BOTTLE SL PRN (19:45)
[2018-05-01 20:00] VITALS: BP 175/68
--- NOTE | 2018-05-01 20:00 | NUR ---
Patient awake aaox1 with confusion, no s/s of pain or acute distress on assessment. Temp WNL at this time, safety measures in place. Will continue to monitor patient
[2018-05-01] MEDS: PHENYTOIN SODIUM EXTENDED 100 MG CAPSULE.SA PO SCH (20:18)
[2018-05-01] MEDS: HYDROCODONE/APAP 5-325MG TABLET PO PRN (20:18)
[2018-05-01] MEDS: LORAZEPAM 0.5 MG TABLET SL PRN (20:18)
[2018-05-01] MEDS: NIFEdipine XL 30 MG TABSR PO SCH (20:19)
[2018-05-01] MEDS: CIPROFLOXACIN 0.3% OPHT DROP 2.5 ML BOTTLE EACHEYE SCH (20:50)
[2018-05-01 21:00] VITALS: BP 128/67
[2018-05-01] MEDS ORDERED: MORPHINE SULFATE 20 MG/1 ML ORAL LIQ. SL PRN (21:00)
[2018-05-01] MEDS: IV D5/ 0.9% NACL 1,000 ML IV SCH (21:53)
--- NOTE | 2018-05-01 22:00 | NUR ---
4 L IV BOLUS ordered in ER infused.
[2018-05-01] MEDS: PIPERACILLIN/TAZOBACTAM/D5W 3.375 G in PREMIXED 1 EACH IV SCH (23:01)
[2018-05-02] VITALS (9 sets, daily range): BP systolic 92–182; BP diastolic 43–84
[2018-05-02 05:48] LABS: CARBON DIOXIDE 23 mmol/L (21-32); CHLORIDE 111 mmol/L (98-107); CREATININE 2.3 mg/dL (0.6-1.3); MAGNESIUM 1.6 mg/dL (1.8-2.4); PHOSPHOROUS 3.7 mg/dL (2.5-4.9); POTASSIUM 4.7 mmol/L (3.5-5.1); UREA NITROGEN, BLOOD 34 mg/dL (7-18)
[2018-05-02 06:00] LABS: BASOPHILS % (AUTO) 0.1 % (0.0-2.0); EOSINOPHILS # (AUTO) 0.1 K/uL (0.0-0.7); EOSINOPHILS % (AUTO) 0.3 % (0.0-7.0); HEMATOCRIT 30.9 % (31.2-41.9); HEMOGLOBIN 9.9 g/dL (10.9-14.3); LYMPHOCYTES # (AUTO) 0.8 K/uL (20.0-40.0); LYMPHOCYTES % (AUTO) 3.4 % (20.5-51.5); MEAN CORPUSCULAR HEMOGLOBIN 27.9 uug (24.7-32.8); MEAN CORPUSCULAR HGB CONC 32 g/dL (32.3-35.6); MEAN CORPUSCULAR VOLUME 87.4 fL (75.5-95.3); MONOCYTES # (AUTO) 1.6 K/uL (2.0-10.0); MONOCYTES % (AUTO) 6.6 % (0.0-11.0); NEUTROPHILS # (AUTO) 21.8 K/uL (1.8-8.9); NEUTROPHILS % (AUTO) 89.6 % (38.5-71.5); PLATELET COUNT (AUTO) 115 K/uL (179-408); RED BLOOD CELL COUNT(AUTO) 3.54 MIL/uL (3.63-4.92); WHITE BLOOD COUNT (AUTO) 24.3 K/uL (3.8-11.8)
[2018-05-02 06:04] LABS: GLUCOSE 388 mg/dL (74-106)
--- NOTE | 2018-05-02 07:24 | NUR ---
Patient slept well throughout the shift. no fever on this shift. no s/s of pain or distress at present. No further changes in status
--- NOTE | 2018-05-02 07:30 | NUR ---
RECIEVED PT LYING IN BED SOUND ASLEEP BUT EASILY AROUSABLE. ORIENTED ONLY TO HER NAME AND VERY CONFUSED AND UNABLE TO FOLLOW DIRECTIONS. SPEECH IS UNCLEAR BUT VERBALLY RESPONSIVE. HR IS ST TO SR NO ECTOPY. IVF D5NS INFUSING WELL ON THE RIGHT AC G18. LUNGS ARE CLEAR. O2 AT 2LNC AND SATURATING AT 94-95%.
[2018-05-02] MEDS: IV D5/ 0.9% NACL 1,000 ML IV SCH (08:53)
[2018-05-02] MEDS: DOCUSATE SODIUM 250 MG CAPSULE PO SCH ×2 (09:00→17:00)
[2018-05-02] MEDS ORDERED: HOME MED MISCELLANEOUS PO SCH (09:00)
[2018-05-02] MEDS: CIPROFLOXACIN 0.3% OPHT DROP 2.5 ML BOTTLE EACHEYE SCH ×4 (09:00→22:12)
--- NOTE | 2018-05-02 09:00 | NUR ---
PT ABLE TO SWALLOW CRUSHED MEDICATIONS WITH APPLE SAUCE, TOLERATED WELL.
[2018-05-02] MEDS: ASCORBIC ACID 500 MG TABLET PO SCH (09:26)
[2018-05-02] MEDS: FUROSEMIDE 40 MG TABLET PO SCH (09:27)
[2018-05-02] MEDS: POTASSIUM CHLORIDE 10 MEQ TAB.PRT.SR PO SCH (09:27)
[2018-05-02] MEDS: ASPIRIN 81 MG TAB.CHEW PO SCH (09:27)
[2018-05-02] MEDS: MULTIVITAMINS,THERAPEUTIC TABLET PO SCH (09:28)
[2018-05-02] MEDS: OLANZAPINE 2.5 MG TABLET PO SCH ×3 (09:28→17:00)
[2018-05-02] MEDS: FAMOTIDINE 20 MG TABLET PO SCH (09:28)
[2018-05-02] MEDS: FLUDROCORTISONE ACETATE 0.1 MG TABLET PO SCH (09:28)
[2018-05-02] MEDS: NIFEdipine XL 30 MG TABSR PO SCH ×2 (09:29→22:11)
[2018-05-02] MEDS: PHENYTOIN SODIUM EXTENDED 100 MG CAPSULE.SA PO SCH ×2 (09:30→22:11)
[2018-05-02] MEDS: AMLODIPINE 10 MG TABLET PO SCH (09:31)
[2018-05-02] MEDS: LORAZEPAM 0.5 MG TABLET SL PRN (09:35)
[2018-05-02] MEDS: LOSARTAN POTASSIUM 50 MG TABLET PO SCH (09:36)
--- NOTE | 2018-05-02 10:30 | NUR ---
SEEN AND EXAMINED BY DR DASILVA WITH NEW ORDERS.
[2018-05-02] MEDS ORDERED: IV NS 1000 ML 1,000 ML IV PRN (10:45)
[2018-05-02] MEDS ORDERED: DEXTROSE 50% 50 ML DISP.SYRIN IV PRN (11:00)
[2018-05-02] MEDS ORDERED: BLOOD SUGAR DIAGNOSTIC 1 EACH STRIP VI SCH ×2 (11:30→12:00)
--- NOTE | 2018-05-02 12:35 | NUR ---
PT FEELS WARM AND HOT TO TOUCH. RECHECKED TEMPERATURE 102.5F/AXILLARY. PT MEDICATED WITH TYLENOR GR X AK ORDERED AND PLACED ON COOLING BLANKET TO KEEP TEMP AT 98.6F
[2018-05-02] MEDS: BLOOD SUGAR DIAGNOSTIC 1 EACH STRIP VI SCH ×3 (12:52→22:17)
[2018-05-02] MEDS: INSULIN REGULAR, HUMAN 300 UNIT/3 ML VIAL SQ PRN ×3 (12:56→22:20)
[2018-05-02] MEDS: PIPERACILLIN/TAZOBACTAM/D5W 3.375 G in PREMIXED 1 EACH IV SCH (12:58)
--- NOTE | 2018-05-02 14:00 | NUR ---
PT PULLED OUT HER IV ON THE RIGHT AC. RESTARTED INFUSION ON THE LEFT AC IV ACCESS, AND INFUSING WELL.
[2018-05-02] MEDS ORDERED: MAGNESIUM SULFATE/D5W 100 ML IV SCH (14:15)
--- NOTE | 2018-05-02 15:30 | NUR ---
1GM OF MAGNESIUM REPLACEMENT IVPB GIVEN ORDERED. PT BEING TURNED AT FREQUENT INTERVALS. SKIN IS INTACT AND FIRST STEP MATTRESS APPLIED.
--- NOTE | 2018-05-02 18:00 | NUR ---
PT IS HAVING SOB, LUNGS SOUNDS SO CONGESTED AND PT'S O2SAT DROPPED IN TH 70'S. PLACED ON 100% NRM. SUCTIONED SECRETIONS AND OBTAINED MODERATE AMOUNT OF FRESH RED BLOOD NASALLY.
--- NOTE | 2018-05-02 18:12 | NUR ---
PT CONTINUES TO DESAT IN THE 70'S. CALLED RAPID RESPONSE AND PCXR DONE, ABG AND EKG DONE. CALLED AND NOTIFIED SCOTT VALENCIA AND INFORMED OF PT'S CONDITION. ORDERED TO TRANSFER PT TO CCU.
[2018-05-02 18:26] LABS: ABG BASE EXCESS -7.4 mmol/L; ABG HCO3 16.3 mmol/L; ABG PCO2 28.1 mmHg (35.0-45.0); ABG PH 7.381 (7.350-7.450); ABG PO2 52.5 mmHg (75.0-100.0); ABG SITE LEFT RADIAL; ABG TOTAL HEMOGLOBIN 12.3 G/dL (12.0-16.0); COHb 1.5 % (0.5-1.5); MetHb 0.2 % (0.0-1.5)
[2018-05-02 18:37] LABS: BASOPHILS % (AUTO) 0.1 % (0.0-2.0); EOSINOPHILS # (AUTO) 0.3 K/uL (0.0-0.7); EOSINOPHILS % (AUTO) 1.1 % (0.0-7.0); HEMATOCRIT 35.9 % (31.2-41.9); HEMOGLOBIN 11.6 g/dL (10.9-14.3); LYMPHOCYTES # (AUTO) 0.8 K/uL (20.0-40.0); LYMPHOCYTES % (AUTO) 2.7 % (20.5-51.5); MEAN CORPUSCULAR HEMOGLOBIN 28.4 uug (24.7-32.8); MEAN CORPUSCULAR HGB CONC 33 g/dL (32.3-35.6); MEAN CORPUSCULAR VOLUME 87.4 fL (75.5-95.3); MONOCYTES # (AUTO) 1.1 K/uL (2.0-10.0); MONOCYTES % (AUTO) 3.7 % (0.0-11.0); NEUTROPHILS # (AUTO) 27.2 K/uL (1.8-8.9); NEUTROPHILS % (AUTO) 92.4 % (38.5-71.5); PLATELET COUNT (AUTO) 173 K/uL (179-408); RED BLOOD CELL COUNT(AUTO) 4.11 MIL/uL (3.63-4.92); WHITE BLOOD COUNT (AUTO) 29.4 K/uL (3.8-11.8)
--- NOTE | 2018-05-02 18:45 | NUR ---
PT TRANSFERREDD TO CCU VIA BED. SBP 182/84. MEDICATED WITH APRESOLINE 10MG SLOW IVP ORDERED.
[2018-05-02 18:47] LABS: ALANINE AMINOTRANSFERASE 39 U/L (14-59); ALKALINE PHOSPHATASE 178 U/L (50-136); ASPARTATE AMINOTRANSFERASE 25 U/L (15-37); BILIRUBIN,TOTAL 0.8 mg/dL (0.2-1.0); CARBON DIOXIDE 20 mmol/L (21-32); CHLORIDE 111 mmol/L (98-107); CREATININE 2.2 mg/dL (0.6-1.3); POTASSIUM 3.8 mmol/L (3.5-5.1); TOTAL PROTEIN, SERUM 7.8 g/dL (6.4-8.2); UREA NITROGEN, BLOOD 29 mg/dL (7-18)
[2018-05-02 18:50] LABS: GLUCOSE 328 mg/dL (74-106)
[2018-05-02] MEDS ORDERED: hydrALAZINE HCL 20 MG/1 ML VIAL IV ONE (19:15)
--- NOTE | 2018-05-02 19:20 | NUR ---
NOTIFIED DR BARRERA OF PT'S CHEST XRAY RESULT. ORDERED LASIX 40MG IVP X 3DOSES. FIRST DOSE GIVEN ORDERED.
[2018-05-02] MEDS ORDERED: FUROSEMIDE 40 MG/4 ML VIAL IV ONE ×2 (20:00→23:59)
[2018-05-02] MEDS ORDERED: hydrALAZINE HCL 20 MG/1 ML VIAL IV PRN (20:00)
--- NOTE | 2018-05-02 20:00 | NUR ---
PT IS DIURESING GOOD AFTER THE LASIX. STILL AGITATED AND CONFUSED. MEDICATED WITH ATIVAN 0.5MG AND NORCO GIVEN PO CRUSHED AND MIXED WITH APPLE SAUCE. PT TOLERATED WELL.
[2018-05-02] MEDS: HYDROCODONE/APAP 5-325MG TABLET PO PRN (20:07)
--- NOTE | 2018-05-02 20:25 | NUR ---
Pt placed on BIPAP per MR orders, settings are 10/5, RR 12, FiO2 100%. Protecta-gel placed to protect skin from mask. Pt tolerating BIPAP well at this time. No respiratory distress noted, saturation is 100% at this time. Alarms are functioning and audible. BIPAP plugged into red outlet. Will continue to monitor pt throughout shift.
--- NOTE | 2018-05-02 20:30 | NUR ---
PT PLACED ON BIPAP 10/5, RATE-12, FIO2 100%. O2SAT UP TO 96-100%.
--- NOTE | 2018-05-02 21:00 | NUR ---
PT TOLERATED BIPAP WELL AND ABLE TO SLEEP.
[2018-05-03] VITALS (24 sets, daily range): BP systolic 94–151; BP diastolic 43–119
[2018-05-03] MEDS: PIPERACILLIN/TAZOBACTAM/D5W 3.375 G in PREMIXED 1 EACH IV SCH ×2 (01:25→12:16)
[2018-05-03] MEDS ORDERED: FUROSEMIDE 40 MG/4 ML VIAL IV ONE (04:00)
[2018-05-03 06:16] LABS: BASOPHILS # (AUTO) 0.1 K/uL (0.0-8.0); BASOPHILS % (AUTO) 0.4 % (0.0-2.0); EOSINOPHILS # (AUTO) 0.2 K/uL (0.0-0.7); EOSINOPHILS % (AUTO) 0.8 % (0.0-7.0); HEMATOCRIT 34.7 % (31.2-41.9); LYMPHOCYTES # (AUTO) 0.6 K/uL (20.0-40.0); LYMPHOCYTES % (AUTO) 2.6 % (20.5-51.5); MEAN CORPUSCULAR HEMOGLOBIN 27.3 uug (24.7-32.8); MEAN CORPUSCULAR HGB CONC 32 g/dL (32.3-35.6); MEAN CORPUSCULAR VOLUME 86.3 fL (75.5-95.3); MONOCYTES % (AUTO) 4.5 % (0.0-11.0); NEUTROPHILS # (AUTO) 19.8 K/uL (1.8-8.9); NEUTROPHILS % (AUTO) 91.7 % (38.5-71.5); PLATELET COUNT (AUTO) 131 K/uL (179-408); RED BLOOD CELL COUNT(AUTO) 4.02 MIL/uL (3.63-4.92); WHITE BLOOD COUNT (AUTO) 21.5 K/uL (3.8-11.8)
[2018-05-03 06:32] LABS: CARBON DIOXIDE 24 mmol/L (21-32); CHLORIDE 114 mmol/L (98-107); GLUCOSE 204 mg/dL (74-106); PHOSPHOROUS 3.1 mg/dL (2.5-4.9); POTASSIUM 3.7 mmol/L (3.5-5.1); UREA NITROGEN, BLOOD 29 mg/dL (7-18)
--- NOTE | 2018-05-03 07:10 | NUR ---
Received Pt on BIPAP per MR orders, settings are 10/5, RR 12, FiO2 90%. Protecta-gel placed to protect skin from mask. Pt tolerating BIPAP well at this time. No respiratory distress noted, saturation is 100% at this time. Alarms are functioning and audible. BIPAP plugged into red outlet. Will continue to monitor pt throughout shift.
[2018-05-03] MEDS: AMLODIPINE 10 MG TABLET PO SCH (09:00)
[2018-05-03] MEDS: NIFEdipine XL 30 MG TABSR PO SCH ×2 (09:00→21:01)
[2018-05-03] MEDS: FAMOTIDINE 20 MG TABLET PO SCH (09:00)
[2018-05-03] MEDS: PHENYTOIN SODIUM EXTENDED 100 MG CAPSULE.SA PO SCH ×2 (09:00→21:01)
[2018-05-03] MEDS: LOSARTAN POTASSIUM 50 MG TABLET PO SCH (09:00)
[2018-05-03] MEDS: ASPIRIN 81 MG TAB.CHEW PO SCH (09:00)
[2018-05-03] MEDS: DOCUSATE SODIUM 250 MG CAPSULE PO SCH ×2 (09:00→17:00)
[2018-05-03] MEDS: ASCORBIC ACID 500 MG TABLET PO SCH (09:00)
[2018-05-03] MEDS: OLANZAPINE 2.5 MG TABLET PO SCH ×3 (09:00→17:00)
[2018-05-03] MEDS: POTASSIUM CHLORIDE 10 MEQ TAB.PRT.SR PO SCH (09:00)
[2018-05-03] MEDS: FUROSEMIDE 40 MG TABLET PO SCH (09:00)
[2018-05-03] MEDS: MULTIVITAMINS,THERAPEUTIC TABLET PO SCH (09:00)
--- NOTE | 2018-05-03 09:00 | NUR ---
PT IS DROWSY AND ON BIPAP. ALL 0900AM ORAL MEDICATIONS NOT GIVEN. PENDING SWALLOW EVALUATION , HIGH RISK FOR ASPIRATION. DR GELLER IS AWARE.
[2018-05-03] MEDS: CIPROFLOXACIN 0.3% OPHT DROP 2.5 ML BOTTLE EACHEYE SCH ×4 (09:32→21:01)
[2018-05-03] MEDS: BLOOD SUGAR DIAGNOSTIC 1 EACH STRIP VI SCH ×4 (09:32→21:00)
[2018-05-03] MEDS: INSULIN REGULAR, HUMAN 300 UNIT/3 ML VIAL SQ PRN ×3 (09:36→16:46)
[2018-05-03] MEDS ORDERED: BUMETANIDE INJ 2 MG in IV DEXTROSE 5% 32 ML IV ONE (10:30)
--- NOTE | 2018-05-03 10:50 | NUR ---
MD order weaning pt off BIPAP. Placed pt on non rebreather mask. SpO2 99%, HR 81, BP 120/63 at this time. will cont to monitor pt and cont weaning down O2. BIPAP at bedside. nurse aware
[2018-05-03] MEDS: HEPARIN SODIUM,PORCINE 5,000 UNITS/ML VIAL SQ SCH ×2 (12:22→21:04)
--- NOTE | 2018-05-03 13:00 | NUR ---
Placed pt on simple mask @10lpm. SpO2 90% will cont to monitor
[2018-05-03] MEDS ORDERED: IV NORMAL SALINE 250 ML IV PRN (19:00)
[2018-05-03] MEDS: INSULIN REGULAR, HUMAN 300 UNITS/3 ML VIAL SQ PRN (21:04)
[2018-05-04] VITALS (24 sets, daily range): BP systolic 93–154; BP diastolic 40–77
[2018-05-04] MEDS: PIPERACILLIN/TAZOBACTAM/D5W 3.375 G in PREMIXED 1 EACH IV SCH ×2 (00:11→13:05)
[2018-05-04 05:40] LABS: CARBON DIOXIDE 24 mmol/L (21-32); CHLORIDE 113 mmol/L (98-107); CREATININE 2.1 mg/dL (0.6-1.3); GLUCOSE 154 mg/dL (74-106); PHOSPHOROUS 3.7 mg/dL (2.5-4.9); POTASSIUM 3.1 mmol/L (3.5-5.1); UREA NITROGEN, BLOOD 32 mg/dL (7-18)
--- NOTE | 2018-05-04 07:30 | NUR ---
RECIEVED PT IN BED SOUND ASLEEP BUT EASILY AROUSABLE. ON HI FLOW O2 AT 40%, TOLERATING WELL. SATURATIONIS 100%. NO APPARENT RESPIRATORY DISTRESS NOTED. AFEBRILE. SR ON MONITOR.
[2018-05-04] MEDS: BLOOD SUGAR DIAGNOSTIC 1 EACH STRIP VI SCH ×4 (08:22→21:09)
[2018-05-04] MEDS: INSULIN REGULAR, HUMAN 300 UNIT/3 ML VIAL SQ PRN ×3 (08:28→16:39)
--- NOTE | 2018-05-04 08:30 | NUR ---
AWAITING FOR PT'S SWALLOW EVALUATION. ABLE TO TAKE HER MEDICATIONS IN APPLE SAUCE.
[2018-05-04 08:34] LABS: EOSINOPHILS # (AUTO) 0.1 K/uL (0.0-0.7); EOSINOPHILS % (AUTO) 0.9 % (0.0-7.0); LYMPHOCYTES # (AUTO) 0.7 K/uL (20.0-40.0); LYMPHOCYTES % (AUTO) 5.2 % (20.5-51.5); MEAN CORPUSCULAR HGB CONC 33 g/dL (32.3-35.6); MONOCYTES # (AUTO) 0.6 K/uL (2.0-10.0)
[2018-05-04 08:47] LABS: BASOPHILS % (AUTO) 0.2 % (0.0-2.0); HEMOGLOBIN 10.1 g/dL (10.9-14.3); MEAN CORPUSCULAR HEMOGLOBIN 27.5 uug (24.7-32.8); MEAN CORPUSCULAR VOLUME 84.1 fL (75.5-95.3); MONOCYTES % (AUTO) 4.8 % (0.0-11.0); NEUTROPHILS # (AUTO) 11.9 K/uL (1.8-8.9); NEUTROPHILS % (AUTO) 88.9 % (38.5-71.5); PLATELET COUNT (AUTO) 130 K/uL (179-408); RED BLOOD CELL COUNT(AUTO) 3.68 MIL/uL (3.63-4.92)
[2018-05-04 08:48] LABS: WHITE BLOOD COUNT (AUTO) 13.4 K/uL (3.8-11.8)
[2018-05-04] MEDS: DOCUSATE SODIUM 250 MG CAPSULE PO SCH ×2 (09:34→17:00)
[2018-05-04] MEDS: CIPROFLOXACIN 0.3% OPHT DROP 2.5 ML BOTTLE EACHEYE SCH ×4 (09:34→21:20)
[2018-05-04] MEDS: OLANZAPINE 2.5 MG TABLET PO SCH ×3 (09:35→17:00)
[2018-05-04] MEDS: FLUDROCORTISONE ACETATE 0.1 MG TABLET PO SCH (09:36)
[2018-05-04] MEDS: NIFEdipine XL 30 MG TABSR PO SCH ×2 (09:37→21:09)
[2018-05-04] MEDS: ASPIRIN 81 MG TAB.CHEW PO SCH (09:37)
[2018-05-04] MEDS: FUROSEMIDE 40 MG TABLET PO SCH (09:38)
[2018-05-04] MEDS: FAMOTIDINE 20 MG TABLET PO SCH (09:38)
[2018-05-04] MEDS: LOSARTAN POTASSIUM 50 MG TABLET PO SCH (09:38)
[2018-05-04] MEDS: ASCORBIC ACID 500 MG TABLET PO SCH (09:38)
[2018-05-04] MEDS: AMLODIPINE 10 MG TABLET PO SCH (09:39)
[2018-05-04] MEDS: POTASSIUM CHLORIDE 10 MEQ TAB.PRT.SR PO SCH (09:39)
[2018-05-04] MEDS: MULTIVITAMINS,THERAPEUTIC TABLET PO SCH (09:39)
[2018-05-04] MEDS: PHENYTOIN SODIUM EXTENDED 100 MG CAPSULE.SA PO SCH ×2 (09:47→21:09)
--- NOTE | 2018-05-04 10:30 | NUR ---
SWALLOW EVAL DONE AT THE BEDSIDE. PT IS SWALLOWING WELL. PLACED ON REGULAR DIET.
--- NOTE | 2018-05-04 10:50 | NUR ---
HEARIN 5,000 SQ GIVEN ORDERED. LOW PLT AND DR OBRIEN IS AWARE. WILL FOLLOW UP IN THE MORNING.
[2018-05-04] MEDS: HEPARIN SODIUM,PORCINE 5,000 UNITS/ML VIAL SQ SCH ×2 (11:18→21:10)
[2018-05-04] MEDS ORDERED: POTASSIUM CHLORIDE 10 MEQ TAB.PRT.SR PO ONE (12:30)
--- NOTE | 2018-05-04 12:30 | NUR ---
ASSISTED PT FOR LUNCH, TOLERATED VERY LITTLE AND VOMITED 2X.
--- NOTE | 2018-05-04 13:30 | NUR ---
MEDICATED WITH KCL 30MEQ ORALLY FOR SUPPLEMENT, BUT PT UNABLE TO SWALLOW THE PILLS BECAUSE HE JUST VOMITED.
--- NOTE | 2018-05-04 17:30 | NUR ---
NOT ABLE TO GIVE ZYPREXA, PT IS NOT FEELING GOOD ON HER STOMACH. SLEEPING ON AND OFF. CONDITION IS UNCHANGED.
--- NOTE | 2018-05-04 19:30 | NUR ---
Report received. Patient sleeping, easily arouses to name. Oriented x1, but able to follow commands fairly well. On high flow O2 via NC FIO2=60%. Saturations good. NAD noted. Addendum: 05/05/18 at 0642 by JAJA ANDERSON RN Amended: Links added. Addendum: 05/05/18 at 0643 by JAJA ANDERSON RN Amended: Links added. Addendum: 05/05/18 at 43 by JAJA TAECHARATKIJ RN Amended: Links added. Addendum: 05/05/18 at 0644 by JAJA ANDERSON RN Amended: Links added. Addendum: 05/05/18 at 0644 by JAJA ANDERSON RN Amended: Links added. Addendum: 05/05/18 at 0644 by JAJA ANDERSON RN Amended: Links added. Addendum: 05/05/18 at 0644 by JAJA ANDERSON RN Amended: Links added. Addendum: 05/05/18 at 0645 by JAJA ANDERSON RN Amended: Links added. Addendum: 05/05/18 at 0645 by JAJA ANDERSON RN Amended: Links added. Addendum: 05/05/18 at 0645 by JAJA ANDERSON RN Amended: Links added. Addendum: 05/05/18 at 0645 by JAJA ANDERSON RN Amended: Links added. Addendum: 05/05/18 at 0646 by JAJA ANDERSON RN Amended: Links added.
[2018-05-04] MEDS ORDERED: CEFTRIAXONE 1 G in IV DEXTROSE 5% 50 ML IV SCH (20:30)
--- NOTE | 2018-05-04 21:00 | NUR ---
PO meds crushed and given with sugar free jello. No swallowing difficulty.
[2018-05-05] VITALS (12 sets, daily range): BP systolic 110–161; BP diastolic 44–90
[2018-05-05 05:18] LABS: CARBON DIOXIDE 26 mmol/L (21-32); CHLORIDE 113 mmol/L (98-107); CREATININE 2.2 mg/dL (0.6-1.3); GLUCOSE 156 mg/dL (74-106); POTASSIUM 3.4 mmol/L (3.5-5.1); UREA NITROGEN, BLOOD 38 mg/dL (7-18)
--- NOTE | 2018-05-05 06:47 | NUR ---
Stable all night on high flow O2. No neuro changes. Patient answers questions appropriately but remains disoriented to place and events. Speech clear. Encouraged increase mobility. Urine output marginal; MD aware. Will endorse to am shift.
[2018-05-05] MEDS: ASPIRIN 81 MG TAB.CHEW PO SCH (08:25)
[2018-05-05] MEDS: FUROSEMIDE 40 MG TABLET PO SCH (08:25)
[2018-05-05] MEDS: PHENYTOIN SODIUM EXTENDED 100 MG CAPSULE.SA PO SCH ×2 (08:26→20:37)
[2018-05-05] MEDS: MULTIVITAMINS,THERAPEUTIC TABLET PO SCH (08:26)
[2018-05-05] MEDS: FAMOTIDINE 20 MG TABLET PO SCH (08:26)
[2018-05-05] MEDS: POTASSIUM CHLORIDE 10 MEQ TAB.PRT.SR PO SCH (08:27)
[2018-05-05] MEDS: AMLODIPINE 10 MG TABLET PO SCH (08:27)
[2018-05-05] MEDS: ASCORBIC ACID 500 MG TABLET PO SCH (08:27)
[2018-05-05] MEDS: LOSARTAN POTASSIUM 50 MG TABLET PO SCH (08:27)
[2018-05-05] MEDS: OLANZAPINE 2.5 MG TABLET PO SCH ×3 (08:29→16:50)
[2018-05-05] MEDS: NIFEdipine XL 30 MG TABSR PO SCH ×2 (08:29→21:30)
[2018-05-05] MEDS: HEPARIN SODIUM,PORCINE 5,000 UNITS/ML VIAL SQ SCH ×2 (08:29→20:44)
[2018-05-05] MEDS: DOCUSATE SODIUM 250 MG CAPSULE PO SCH ×2 (08:30→16:50)
[2018-05-05] MEDS: BLOOD SUGAR DIAGNOSTIC 1 EACH STRIP VI SCH ×4 (08:32→20:53)
[2018-05-05] MEDS: CIPROFLOXACIN 0.3% OPHT DROP 2.5 ML BOTTLE EACHEYE SCH ×4 (08:32→20:31)
[2018-05-05] MEDS: INSULIN REGULAR, HUMAN 300 UNIT/3 ML VIAL SQ PRN ×4 (08:35→21:33)
--- NOTE | 2018-05-05 11:28 | NUR ---
Dr. Pichardo here to see pt. Full report given. stated that it was okay to downgrade pt to telemetry status.
[2018-05-05] MEDS ORDERED: POTASSIUM CHLORIDE 10 MEQ TAB.PRT.SR PO ONE (13:00)
--- NOTE | 2018-05-05 16:53 | NUR ---
Full telephone SBAR report given to ILYA Lombardi 2nd floor.
--- NOTE | 2018-05-05 17:25 | NUR ---
Pt transferred to room 208-T. Pt stable and nad noted upon transfer.
--- NOTE | 2018-05-05 17:36 | NUR ---
report received from majo CARABALLO earlier, patient transferred to room 208 on tele SR. no acute distress noted. comfort measures provided. will cotninue to monitor clsoely.
[2018-05-05] MEDS ORDERED: CEFEPIME HCL 1 G in IV DEXTROSE 5% 50 ML IV SCH (18:45)
--- NOTE | 2018-05-05 19:00 | NUR ---
RECEIVED PATIENT IN BED AWAKE ALERT, NO SOB NO CHEST PAIN NOTED, TELE MONITOR SINUS RHYTHM, HOB ELEVATED, ON OXYGEN 2LPM NO DESATURATION NOTED, NO COMPLAIN OF PAIN AT THIS TIME, TURN AND REPOSITION, KEPT COMFORTABLE.
[2018-05-05] MEDS: CEFEPIME HCL 1 G in IV DEXTROSE 5% 50 ML IV SCH (20:31)
[2018-05-06 00:16] VITALS: BP 124/61
[2018-05-06 04:00] VITALS: BP 139/73
[2018-05-06] MEDS: BLOOD SUGAR DIAGNOSTIC 1 EACH STRIP VI SCH ×4 (06:45→20:10)
--- NOTE | 2018-05-06 06:52 | NUR ---
PATIENT SLEPT MOST OF THE NIGHT, NO SOB NO CHEST PAIN, TELE MONITOR SINUS RHYTHM AT THIS TIME, GUERRIER CATH DRAINING WITH YELLOW COLOR URINE IN MODERATE AMOUNT, WITH EPISODES OF NON PRODUCTIVE COUGH. CONT TO MONITOR.
[2018-05-06 07:33] LABS: BASOPHILS % (AUTO) 0.4 % (0.0-2.0); EOSINOPHILS # (AUTO) 0.4 K/uL (0.0-0.7); EOSINOPHILS % (AUTO) 5.2 % (0.0-7.0); HEMATOCRIT 30.8 % (31.2-41.9); HEMOGLOBIN 10.1 g/dL (10.9-14.3); LYMPHOCYTES % (AUTO) 13.2 % (20.5-51.5); MEAN CORPUSCULAR HEMOGLOBIN 27.8 uug (24.7-32.8); MEAN CORPUSCULAR HGB CONC 33 g/dL (32.3-35.6); MEAN CORPUSCULAR VOLUME 84.6 fL (75.5-95.3); MONOCYTES # (AUTO) 1.1 K/uL (2.0-10.0); MONOCYTES % (AUTO) 14.4 % (0.0-11.0); NEUTROPHILS # (AUTO) 5.2 K/uL (1.8-8.9); NEUTROPHILS % (AUTO) 66.8 % (38.5-71.5); PLATELET COUNT (AUTO) 134 K/uL (179-408); RED BLOOD CELL COUNT(AUTO) 3.64 MIL/uL (3.63-4.92); WHITE BLOOD COUNT (AUTO) 7.8 K/uL (3.8-11.8)
[2018-05-06 07:47] LABS: ALANINE AMINOTRANSFERASE 22 U/L (14-59); ALKALINE PHOSPHATASE 144 U/L (50-136); ASPARTATE AMINOTRANSFERASE 27 U/L (15-37); BILIRUBIN,TOTAL 0.4 mg/dL (0.2-1.0); CARBON DIOXIDE 25 mmol/L (21-32); CHLORIDE 110 mmol/L (98-107); CREATININE 1.7 mg/dL (0.6-1.3); GLUCOSE 143 mg/dL (74-106); MAGNESIUM 1.8 mg/dL (1.8-2.4); PHOSPHOROUS 2.9 mg/dL (2.5-4.9); POTASSIUM 3.4 mmol/L (3.5-5.1); TOTAL PROTEIN, SERUM 6.3 g/dL (6.4-8.2); UREA NITROGEN, BLOOD 31 mg/dL (7-18)
[2018-05-06] MEDS: ASCORBIC ACID 500 MG TABLET PO SCH (08:38)
[2018-05-06] MEDS: DOCUSATE SODIUM 250 MG CAPSULE PO SCH ×2 (08:38→16:57)
[2018-05-06] MEDS: FUROSEMIDE 40 MG TABLET PO SCH (08:38)
[2018-05-06] MEDS: POTASSIUM CHLORIDE 10 MEQ TAB.PRT.SR PO SCH (08:38)
[2018-05-06] MEDS: NIFEdipine XL 30 MG TABSR PO SCH ×2 (08:39→20:07)
[2018-05-06] MEDS: MULTIVITAMINS,THERAPEUTIC TABLET PO SCH (08:39)
[2018-05-06] MEDS: OLANZAPINE 2.5 MG TABLET PO SCH ×3 (08:39→16:57)
[2018-05-06] MEDS: FAMOTIDINE 20 MG TABLET PO SCH (08:39)
[2018-05-06] MEDS: FLUDROCORTISONE ACETATE 0.1 MG TABLET PO SCH (08:39)
[2018-05-06] MEDS: ASPIRIN 81 MG TAB.CHEW PO SCH (08:39)
[2018-05-06] MEDS: AMLODIPINE 10 MG TABLET PO SCH (08:40)
[2018-05-06] MEDS: PHENYTOIN SODIUM EXTENDED 100 MG CAPSULE.SA PO SCH ×2 (08:40→20:06)
[2018-05-06] MEDS: LOSARTAN POTASSIUM 50 MG TABLET PO SCH (08:41)
[2018-05-06] MEDS: HEPARIN SODIUM,PORCINE 5,000 UNITS/ML VIAL SQ SCH ×2 (08:43→20:08)
[2018-05-06] MEDS: INSULIN REGULAR, HUMAN 300 UNIT/3 ML VIAL SQ PRN ×3 (08:45→17:04)
[2018-05-06] MEDS: CIPROFLOXACIN 0.3% OPHT DROP 2.5 ML BOTTLE EACHEYE SCH ×4 (08:52→20:06)
[2018-05-06 11:07] VITALS: BP 149/61
[2018-05-06] MEDS ORDERED: POTASSIUM CHLORIDE 10 MEQ TAB.PRT.SR PO ONE (12:15)
[2018-05-06 15:33] VITALS: BP 138/64
--- NOTE | 2018-05-06 18:49 | NUR ---
PT SHOWS NO SIGNS OF RESPIRATORY DISTRESS AT THIS TIME. PT IS CALM AND RESTING I BED. CONTINUE TO MONITOR PT.
[2018-05-06 19:15] VITALS: BP 152/59
--- NOTE | 2018-05-06 19:20 | NUR ---
RECEIVED PATIENT LYING IN BED. AAOX2. IN NO ACUTE DISTRESS. ON O2 AT 2LPM VIA NC IN PLACE. O2 SAT AT 95%. IV SITE ON LEFT AC AND RIGHT HAND INTACT AND PATENT. NSR ON TELE AT 82/MIN. SAFETY MEASURE INITIATED AND CALL GUTIERREZ WITHIN REACH.
--- NOTE | 2018-05-06 20:05 | NUR ---
Noted right hand IV line infiltrated. Discontinued IV line on right hand. Still has IV line on left ac intact and patent.
[2018-05-06] MEDS: CEFEPIME HCL 1 G in IV DEXTROSE 5% 50 ML IV SCH (20:06)
[2018-05-06] MEDS: INSULIN REGULAR, HUMAN 300 UNITS/3 ML VIAL SQ PRN (20:12)
--- NOTE | 2018-05-06 21:00 | NUR ---
AT 1999 PATIENT TEMP WAS 99.1 ORALLY. COOLING MEASURE PROVIDED AND TEMP. DOWN TO 98.9 AT 2099.
[2018-05-06 23:19] VITALS: BP 138/82
[2018-05-07 03:35] VITALS: BP 157/64
--- NOTE | 2018-05-07 06:11 | NUR ---
AAOX2. IN NO ACUTE DISTRESS. AFEBRILE. ON O2 AT 2LPM VIA NC IN PLACE. O2 SAT AT 93%. IV SITE ON LEFT AC INTACT AND PATENT. NO ADVERSE REACTION NOTED FROM IV ABX. NSR ON TELE AT 84/MIN. GUERRIER CATHETER INTACT AND DRAINNG VIA GRAVITY. SAFETY MEASURE MAINTAINED AND CALL GUTIERREZ WITHIN REACH.
[2018-05-07] MEDS: BLOOD SUGAR DIAGNOSTIC 1 EACH STRIP VI SCH ×4 (06:38→20:09)
[2018-05-07] MEDS: AMLODIPINE 10 MG TABLET PO SCH (08:38)
[2018-05-07] MEDS: PHENYTOIN SODIUM EXTENDED 100 MG CAPSULE.SA PO SCH ×2 (08:38→20:09)
[2018-05-07] MEDS: OLANZAPINE 2.5 MG TABLET PO SCH ×3 (08:39→17:02)
[2018-05-07] MEDS: FAMOTIDINE 20 MG TABLET PO SCH (08:39)
[2018-05-07] MEDS: MULTIVITAMINS,THERAPEUTIC TABLET PO SCH (08:39)
[2018-05-07] MEDS: DOCUSATE SODIUM 250 MG CAPSULE PO SCH ×2 (08:39→17:02)
[2018-05-07] MEDS: POTASSIUM CHLORIDE 10 MEQ TAB.PRT.SR PO SCH (08:39)
[2018-05-07] MEDS: ASCORBIC ACID 500 MG TABLET PO SCH (08:39)
[2018-05-07] MEDS: FUROSEMIDE 40 MG TABLET PO SCH (08:39)
[2018-05-07] MEDS: ASPIRIN 81 MG TAB.CHEW PO SCH (08:39)
[2018-05-07] MEDS: LOSARTAN POTASSIUM 50 MG TABLET PO SCH (08:39)
[2018-05-07] MEDS: NIFEdipine XL 30 MG TABSR PO SCH ×2 (08:41→20:09)
[2018-05-07] MEDS: HEPARIN SODIUM,PORCINE 5,000 UNITS/ML VIAL SQ SCH ×2 (08:43→20:06)
[2018-05-07] MEDS: INSULIN REGULAR, HUMAN 300 UNIT/3 ML VIAL SQ PRN ×2 (08:44→12:11)
[2018-05-07] MEDS: CIPROFLOXACIN 0.3% OPHT DROP 2.5 ML BOTTLE EACHEYE SCH ×4 (08:45→20:09)
[2018-05-07 11:45] VITALS: BP 124/51
[2018-05-07 15:44] VITALS: BP 122/54
--- NOTE | 2018-05-07 18:06 | NUR ---
PATIENT A/A/OX2, DENIED PAIN THROUGHOUT SHIFT, COMPLIANT WITH MEDICATIONS AND NURSING CARE. TURNED AND REPOSITIONED Q2HRS, CALL LIGHT IN REACH, BED ALARM ON.
--- NOTE | 2018-05-07 19:15 | NUR ---
RECEIVED PATIENT LYING IN BED. ASLEEP BUT EASILY AROUSE TO VERBAL STIMULI. AOX2. IN NO ACUTE DISTRESS. ON O2 AT 2LPM VIA NC IN PLACE. IV SITE ON LEFT AC INTACT. SAFETY MEASURE INITIATED AND CALL GUTIERREZ WITHIN REACH.
[2018-05-07] MEDS: CEFEPIME HCL 1 G in IV DEXTROSE 5% 50 ML IV SCH (20:09)
[2018-05-07 20:11] VITALS: BP 146/62
[2018-05-07] MEDS: INSULIN REGULAR, HUMAN 300 UNITS/3 ML VIAL SQ PRN (20:11)
[2018-05-08 04:25] VITALS: BP 140/53
--- NOTE | 2018-05-08 06:04 | NUR ---
AAOX2. O2 AT 2LPM VIA NC IN PLACE. O2 SAT AT 97%. IV SITE ON LEFT AC INTACT AND PATENT. NO ADVERSE REACTION NOTED FROM IV ABX. GUERRIER CATHETER INTACT AND DRAINING VIA GRAVITY. SAFETY MEASURE MAINTAINED AND CALL GUTIERREZ WITHIN REACH.
[2018-05-08 06:52] LABS: ALANINE AMINOTRANSFERASE 26 U/L (14-59); ALKALINE PHOSPHATASE 147 U/L (50-136); ASPARTATE AMINOTRANSFERASE 25 U/L (15-37); BILIRUBIN,TOTAL 0.3 mg/dL (0.2-1.0); CARBON DIOXIDE 25 mmol/L (21-32); CHLORIDE 108 mmol/L (98-107); CREATININE 1.5 mg/dL (0.6-1.3); GLUCOSE 126 mg/dL (74-106); MAGNESIUM 1.7 mg/dL (1.8-2.4); POTASSIUM 3.8 mmol/L (3.5-5.1); TOTAL PROTEIN, SERUM 6.2 g/dL (6.4-8.2); UREA NITROGEN, BLOOD 24 mg/dL (7-18)
[2018-05-08] MEDS: BLOOD SUGAR DIAGNOSTIC 1 EACH STRIP VI SCH ×3 (06:55→16:49)
--- NOTE | 2018-05-08 06:57 | NUR ---
TELEPHONE CALL FROM SITE MEDICAL DIRECTOR/KALE AND REPORTED CRITICAL LAB VALUE FOR ALBUMIN OF 1.5. INFORMED DAY SHIFT NURSE ALEJANDRA AND WILL FOLLOW UP.
[2018-05-08 07:08] LABS: BASOPHILS % (AUTO) 0.2 % (0.0-2.0); EOSINOPHILS # (AUTO) 0.5 K/uL (0.0-0.7); EOSINOPHILS % (AUTO) 5.8 % (0.0-7.0); HEMATOCRIT 29.6 % (31.2-41.9); HEMOGLOBIN 9.9 g/dL (10.9-14.3); LYMPHOCYTES # (AUTO) 1.5 K/uL (20.0-40.0); LYMPHOCYTES % (AUTO) 15.8 % (20.5-51.5); MEAN CORPUSCULAR HEMOGLOBIN 27.9 uug (24.7-32.8); MEAN CORPUSCULAR HGB CONC 33 g/dL (32.3-35.6); MEAN CORPUSCULAR VOLUME 83.8 fL (75.5-95.3); MONOCYTES # (AUTO) 1.1 K/uL (2.0-10.0); MONOCYTES % (AUTO) 11.5 % (0.0-11.0); NEUTROPHILS # (AUTO) 6.3 K/uL (1.8-8.9); NEUTROPHILS % (AUTO) 66.7 % (38.5-71.5); PLATELET COUNT (AUTO) 191 K/uL (179-408); RED BLOOD CELL COUNT(AUTO) 3.54 MIL/uL (3.63-4.92); WHITE BLOOD COUNT (AUTO) 9.4 K/uL (3.8-11.8)
[2018-05-08] MEDS ORDERED: CEFE1FRO IV (07:33)
--- NOTE | 2018-05-08 07:37 | NUR ---
patient resting comfortably in bed at this time. Critical lab value called in this morning: albumin 1.5. MD notified and no orders given following notification. D/C order placed by MD. Corado to be D/Yves per MD orders. bedbound. no signs of distress at this time. stable condition. bed alarm on, call light within reach of patient. will continue to monitor.
[2018-05-08] MEDS: FUROSEMIDE 40 MG TABLET PO SCH (08:46)
[2018-05-08] MEDS: PHENYTOIN SODIUM EXTENDED 100 MG CAPSULE.SA PO SCH (08:46)
[2018-05-08] MEDS: DOCUSATE SODIUM 250 MG CAPSULE PO SCH (08:46)
[2018-05-08] MEDS: FAMOTIDINE 20 MG TABLET PO SCH (08:46)
[2018-05-08] MEDS: OLANZAPINE 2.5 MG TABLET PO SCH ×2 (08:46→12:39)
[2018-05-08] MEDS: ASPIRIN 81 MG TAB.CHEW PO SCH (08:46)
[2018-05-08] MEDS: POTASSIUM CHLORIDE 10 MEQ TAB.PRT.SR PO SCH (08:46)
[2018-05-08] MEDS: MULTIVITAMINS,THERAPEUTIC TABLET PO SCH (08:46)
[2018-05-08] MEDS: ASCORBIC ACID 500 MG TABLET PO SCH (08:46)
[2018-05-08] MEDS: CIPROFLOXACIN 0.3% OPHT DROP 2.5 ML BOTTLE EACHEYE SCH ×2 (08:47→12:39)
[2018-05-08] MEDS: AMLODIPINE 10 MG TABLET PO SCH (08:47)
[2018-05-08] MEDS: LOSARTAN POTASSIUM 50 MG TABLET PO SCH (08:47)
[2018-05-08] MEDS: FLUDROCORTISONE ACETATE 0.1 MG TABLET PO SCH (08:47)
[2018-05-08] MEDS: NIFEdipine XL 30 MG TABSR PO SCH (08:47)
[2018-05-08] MEDS: HEPARIN SODIUM,PORCINE 5,000 UNITS/ML VIAL SQ SCH (08:52)
--- NOTE | 2018-05-08 09:15 | NUR ---
NON-ADMINISTRATION MEDICATIONS: CULTURELLE PO - ASPIRATION PRECAUTIONS ASPIRIN SUPPOSITORY - BLACK TARRY STOOL PRESENT. WILL SEND STOOL OB WITH NEXT BOWEL MOVEMENT. Addendum: 05/08/18 at 1527 by ALEJANDRA FRANK RN PLEASE DISREGARD - INCORRECT PATIENT.
[2018-05-08 11:02] VITALS: BP 108/44
[2018-05-08] MEDS: INSULIN REGULAR, HUMAN 300 UNIT/3 ML VIAL SQ PRN (11:39)
[2018-05-08] MEDS ORDERED: MAGNESIUM SULFATE/D5W 100 ML IV SCH (15:00)
[2018-05-08 15:20] VITALS: BP 133/55
--- NOTE | 2018-05-08 17:04 | NUR ---
Patient discharged at this time in stable condition. Left Antecubital IV-access [address], patent for ABX administration at [facility]. ID-band taken off. Discharge packet completed and given to patient/ Loi. Report given to ILYA Foley at [place]. Vital signs stable at discharge. Form of transportation ambulance. Patient discharged from [facility] safely.
== END 2018-05-08 17:15 | DRG 871 ==
LOC: ER 14:48 → TELE 16:28 → CCU 16:37 → TELE 05-02 07:22 → TELE-TD 05-02 07:36 → CCU 05-02 18:40 → TELE 05-05 17:25 → MED 05-07 10:58
PROVIDERS: ADMIT Internal Medicine Nephrology; ATTEND Internal Medicine Nephrology
PROC: 5A09357 Assistance with Respiratory Ventilation, Less than 24 Consecutive Hours, Continuous Positive Airway Pressure (ICD-10-PCS; principal; 2018-05-02)
DX: A41.59 Other Gram-negative sepsis (principal); N17.0 Acute kidney failure with tubular necrosis; G92 Toxic encephalopathy; I50.31 Acute diastolic (congestive) heart failure; J96.01 Acute respiratory failure with hypoxia; J15.9 Unspecified bacterial pneumonia; N39.0 Urinary tract infection, site not specified; I13.0 Hypertensive heart and chronic kidney disease with heart failure and stage 1 through stage 4 chronic kidney disease, or unspecified chronic kidney disease; E87.0 Hyperosmolality and hypernatremia; R65.20 Severe sepsis without septic shock; B96.4 Proteus (mirabilis) (morganii) as the cause of diseases classified elsewhere; R13.10 Dysphagia, unspecified; F03.90 Unspecified dementia, unspecified severity, without behavioral disturbance, psychotic disturbance, mood disturbance, and anxiety; Z79.82 Long term (current) use of aspirin; Z79.899 Other long term (current) drug therapy; E11.65 Type 2 diabetes mellitus with hyperglycemia; E11.22 Type 2 diabetes mellitus with diabetic chronic kidney disease; N18.9 Chronic kidney disease, unspecified; G40.909 Epilepsy, unspecified, not intractable, without status epilepticus; Z83.3 Family history of diabetes mellitus
CPT/HCPCS: 36415; 36600; 70030-TC; 71045; 83605; 83690; 83735; 84100; 85025; 85730; 87040; 87077; 87086; 92523; 92610; 93005; 93307; 94660; A4663; G0378; J0360; J0692; J0696; J1644; J1815; J1940; J2543; J3370; J3475; J3490; J7030; J7040; J7042; J7050; J7060